=== PATIENT | female | born 1970 | race Caucasian/White ===

== ENCOUNTER 2017-05-09 07:47 | Inpatient (IN) | payer OTHER ==
[~2017-05-09] VITALS: Ht 162.6 cm; Wt 63.5 kg
[~2017-05-09 07:47] MED LIST: FLOVENT HFA12 GM INH; LAMOTRIGINE100 MG PO; MINOCYCLINE HC100 MG PO; PROVENTIL HFA6.7 GM INH; ZOFRAN4 MG PO
--- NOTE | 2017-05-09 16:56 | NUR ---
PATIENT TO FLOOR FROM ED. COMPLAINING OF ABDOMINAL PAIN 7/10 ON PAIN SCALE AND SOME NAUSEA. ADMINISTERED 4 MG IV ZOFRAN AND 25 MCG OF FENTANYL. PATIENT HOLDING STOMACH AND GRIMACING. ALSO COMPLAINS OF HEADACHE AND REQUESTING TYLENOL. UP TO BATHROOM STBY. FULL BODY ASSESMENT DONE. TELE CONNECTED TO PATIENT. CALL LIGHT WITHIN REACH.
[2017-05-09] MEDS ORDERED: CALCIUM 600 +1 EACH PO (18:01)
[2017-05-09] MEDS ORDERED: VITAMIN D1000 UNI1 PO (18:02)
--- NOTE | 2017-05-09 18:16 | NUR ---
PATIENT COMPLAINS OF PAIN, AND NAUSEA. ADMINISTERED PHENERGAN PO AND TYLENOL PO. PATIENT UP TO BATHROOM, INDEPENDANTLY. TELE SINUS VERONICA P 52.
--- NOTE | 2017-05-09 18:45 | NUR ---
PATIENT TO FLOOR FROM ED. TELE 6, SINUS VERONICA. COMPLAINTS OF NAUSEA, PHENERGAN ADMINISTERED. D51/2 NS WITH 20 K @ 100ML/HR. PATIENT VOIDING WELL. UA SENT.
--- NOTE | 2017-05-09 19:00 | NUR ---
SHIFT REPORT RECIEVED. PATIENT RESTING IN BED, EYES CLOSED, RR 16. CALL LIGHT IN REACH.
--- NOTE | 2017-05-09 20:18 | NUR ---
VITALS AND I&OS DONE AND CHARTED. HELPED HER TO THE BATHROOM AND BACK TO BED. BEDSIDE TABLE AND CALL LIGHT IN REACH.
--- NOTE | 2017-05-09 22:00 | NUR ---
PATIENT RESTING IN BED. STATES HER PAIN IS 3/10 IN THE EPIGASTRIC AREA BUT DECLINES THE NEED FOR PRN PAIN MEDS. NAUSEA HAS IMPROVED SOME. PATIENT ABLE TO DRINK SOME WATER AND A BITE OF JELLO. ABD IS SOFT AND NON TENDER. BOWEL SOUNDS ACTIVE. PAIN IS BURN AND SHARP IN THE EPIGASTRIC AREA. PAIN RADIATES TO THE MIDDLE OF HER BACK. SHE REPORTS THAT PAIN PRESSURE. LUNGS ARE CLEAR. PATIENT ON ROOM AIR. PATIENT IS INDEPENDENT UP TO THE BATHROOM. OUTPUT IS QS. IV FLUIDS INFUSING PER ORDER. SITE WNL. NO OTHER NEEDS AT THIS TIME.
--- NOTE | 2017-05-09 22:45 | NUR ---
PATIENT REPORTS INCREASING PAIN. 8/10 IN THE EPIGASTRIC AREA, 5/10 IN HER BACK. PRN PAIN AND NAUSEA MEDS PROVIDED. PATIENT HAD SMALL AMOUNT OF EMESIS, ESTIMATED 10MLS. PATIENT SETTLED DOWN WITHIN A FEW MINS OF MED ADMINISTRATION AND DENIED OTHER NEEDS. SHE IS RESTING IN BED. CALL LIGHT IN REACH.
--- NOTE | 2017-05-09 23:30 | NUR ---
PATIENT REQUESTING PRN NEB TREATMENT. RT CONTACTED.
--- NOTE | 2017-05-09 23:57 | NUR ---
VITALS AND I&OS DONE AND CHARTED. HELPED HER TO THE BATHROOM AND BACK TO BED. BEDSIDE TABLE AND CALL LIGHT WITHIN REACH. SHE NEEDS NOTHING ELSE AT THIS TIME.
--- NOTE | 2017-05-10 01:42 | NUR ---
VITALS AND I&OS DONE AND CHARTED. INFORMED PTS GUCCI HOUSTON OF HIGH B/P. PT ALSO COMPLAINS OF BACK AND STOMACH PAIN. I INFORMED GUCCI HOUSTON ALSO ABOUT THIS. I GOT PT A WARM BLANKET FOR HER BACK PER HER REQUEST. BEDSIDE TABLE AND CALL LIGHT WITHIN REACH.
--- NOTE | 2017-05-10 01:50 | NUR ---
PATIENT IS REPORTING 6/10 PAIN IN HER EPIGASTRIC AREA AND HER MID BACK. THIS PAIN IS CONSTANT AND BURNING. PRN PAIN MEDS PROVIDED. PATIENT HAS ALSO BEEN DRY HEAVING EVERY HOUR OR SO, SHE STATES. PRN PHENERGAN PROVIDED PER ORDER. PATIENT REPORTS SOME COMFORT FOR THE HEAT PACK, NEW ONE WAS PROVIDED. PATIENT APPEARS COMFORTABLE IN BED. CALL LIGHT IN REACH.
--- NOTE | 2017-05-10 03:34 | NUR ---
PATIENT REPORTED 6/10 PAIN. THE PAIN CONTINUES TO BE IN HER EPIGASTRIC AREA AND HER MIDDLE BACK. HEAT PACK AND WARM BLANKETS ARE COMFORTING TO HER. HOWEVER, SHE ALSO REQUESTED PRN PAIN MEDS AT THIS TIME. WHICH WAS GIVEN TO HER. PATIENT CONTINUES TO HAVE SMALL AMOUNTS OF GREEN EMESIS, ABOUT 10-20MLS AT A TIME. PATIENT IS PALE. PATIENT IS ON TELE, HR IN THE 60'S.
--- NOTE | 2017-05-10 04:45 | NUR ---
PATIENT APPEARS TO BE SLEEPING. RR 17. CALL LIGHT IN REACH.
--- NOTE | 2017-05-10 05:33 | NUR ---
PATIENT SLEPT ON AND OFF THROUGHOUT THE NIGHT. CONTINUES TO HAVE EPIGASTRIC PAIN THAT IS BURNING, SHARP AND CONSTANT. ALSO HAS MID BACK PAIN THAT IS ACHING. PRN PAIN MEDS X3 SO FAR. PATIENT ALSO HAS CONTINUED NAUSEA THAT IS ONLY MILD BUT UNRELIEVED BY PRN NAUSEA MEDS. ABD IS SOFT AND NONTENDER. NO OTHER SYMPTIOMS REPORTED. IV FLUIDS INFUSING PER ORDER, SITE WNL. LUNGS ARE CLEAR. PATIENT INDEPENDENT IN THE ROOM. OUTPUT QS. TELE #6, HR IN THE 60S MOST OF THE NIGHT.
--- NOTE | 2017-05-10 06:10 | NUR ---
PATIENT IS UP ON ALL FOURS IN HER BED. SHE IS BREATHING AT A RAPID RATE AND APPEARS VERY ANXIOUS. PRN PAIN MEDS AND PRN ZOFRAN PROVIDED. ENCOURAGED PATIENT TO BREATH DEEPLY AND MORE CONTROLLED. PATIENT REQUESTED WARM BLANKET WHICH WAS GIVEN TO HER. PATIENT DOES NOT HAVE ANY TENDERNESS OR DISTENTION. VS ARE WNL. MD CONTACTED. NO NEW ORDERS.
--- NOTE | 2017-05-10 07:09 | EKG ---
[facility] [address] [place], [place] [address] Signed Sinus bradycardia Otherwise normal ECG When compared with ECG of 09-MAY-2017 07:57, (Unconfirmed) No significant change was found Confirmed by JESSE KENNEDY MD ([id number]) on 05/10/2017 7:09:22 AM Electronically Signed By: JESSE KENNEDY MD 05/10/17 0709 PATIENT NAME: WARREN LAI Electrocardiogram DATE OF : 66 PHYSICIAN: JESSE KENNEDY MD REPORT #: [id number] REPORT IS CONFIDENTIAL AND NOT TO BE RELEASED WITHOUT AUTHORIZATION
--- NOTE | 2017-05-10 07:09 | EKG ---
[facility] [address] [facility] [place], [place] [address] Signed Sinus bradycardia Otherwise normal ECG No previous ECGs available Confirmed by JESSE KENNEDY MD ([id number]) on 05/10/2017 7:09:15 AM Electronically Signed By: JESSE KENNEDY MD 05/10/17 0709 PATIENT NAME: WARREN LAI Electrocardiogram DATE OF : 66 PHYSICIAN: JESSE KENNEDY MD REPORT #: [id number] REPORT IS CONFIDENTIAL AND NOT TO BE RELEASED WITHOUT AUTHORIZATION
--- NOTE | 2017-05-10 07:10 | EKG ---
[facility] [address] [place], [place] [address] Signed Marked sinus bradycardia Abnormal ECG When compared with ECG of 09-MAY-2017 08:34, (Unconfirmed) No significant change was found Confirmed by JESSE KENNEDY MD ([id number]) on 05/10/2017 7:09:53 AM Electronically Signed By: JESSE KENNEDY MD 05/10/17 0710 PATIENT NAME: WARREN LAI Electrocardiogram DATE OF : 66 PHYSICIAN: JESSE KENNEDY MD REPORT #: [id number] REPORT IS CONFIDENTIAL AND NOT TO BE RELEASED WITHOUT AUTHORIZATION
--- NOTE | 2017-05-10 07:20 | NUR ---
bed side report. pt anxious - c/o pain in mid posterior chest. rn scratched/rubbed back and comforted pt. she reported that it was a relief. she voided qs. amb back to bed and talked with RN about home stresses and family.
--- NOTE | 2017-05-10 07:46 | NUR ---
pt sl to ct scan via w/c
--- NOTE | 2017-05-10 08:03 | NUR ---
CHANGED BED LINENS. GETTING HER READY TO TAKE A SHOWER.
--- NOTE | 2017-05-10 08:37 | NUR ---
PATIENT JUST GOT OUT OF THE SHOWER. NOW IS RESTING.
--- NOTE | 2017-05-10 09:31 | NUR ---
talked with Dr. Veronica about pt pain, ok to use K pad for back pain, and discussed pt anxiety and stress. Pepcid given and pt enc to relax. will be in to discuss plan and ct.
--- NOTE | 2017-05-10 09:41 | NUR ---
NEW PILLOW BEHIND HEAD FOR COMFORT - DC GAME AGENT IN ROOM.
--- NOTE | 2017-05-10 10:26 | NUR ---
PT RATES PAIN 9/10 IN BACK - REPOSITIONED AND FENTANYL GIVEN. k PAD HEAT IS HELPING.
--- NOTE | 2017-05-10 10:37 | NUR ---
IN RM WITH DR. KUMAR 2 MG PO GIVEN - PHARMACY MAKING GI COCKTAIL NOW.
--- NOTE | 2017-05-10 12:26 | NUR ---
PATIENT C/O ABDOMINAL PAIN 10/01, PATIENT REQUESTED PAIN MEDICATION, 25MG OF FENTANYL IV GIVEN AT THIS TIME
--- NOTE | 2017-05-10 13:11 | NUR ---
PT REPORTS PAIN IMPROVING. TYLENOL PO GIVEN. PT COUGH UP WEEKS TINGED SPUTUM - HIST OF SMOKING DR SHOWN SPUTUM.
--- NOTE | 2017-05-10 13:11 | NUR ---
PT LAYING IN BED, IN RM. SHE WAVED, BUT SHOWED BY THE LOOK ON HER FACE THAT SHE WAS IN SOME PAIN. EXTENDED A BLESSING, SHE SMILED BEST SHE COULD, AND WAVED. WILL CONTINIE TO FOLLOW NEEDED
--- NOTE | 2017-05-10 17:12 | NUR ---
patient given 25 mg of fentanyl iv for c/o 7/10 abdominal pain and zofran iv for c/o nausea
--- NOTE | 2017-05-10 17:51 | NUR ---
PT TRYING LESS NARCOTIC MEDS AND K PAD AND ATIVAN ADJUVENTS FOR PAIN. SH TODAY - REPORTS MOST PAIN IN POSTERIOR BACK CHEST AREA. REPORTS IT TO BE EPIGASTRIC IN NATURE - GI COCKTAIL GIVEN - PT WAS ABLE TO SLEEP MULTIPLE TIMES, IV MEDS ALTERNATED WITH TYLENOL, PHENERGAN AND ATIVAN. CT NEG TODAY -
--- NOTE | 2017-05-10 19:00 | NUR ---
SHIFT REPORT RECIEVED. PATIENT APPEARS TO BE SLEEPING. RR 17. CALL LIGHT IN REACH.
--- NOTE | 2017-05-10 20:00 | NUR ---
PATIENT IS TENSE AND RESTLESS IN BED. REPORTS PAIN 7/10. SHE APPEARS ANXIOUS AND RN IS UNABLE TO CONSOLE HER. PRN PAIN AND ANXIETY MEDS PROVIDED. PATIENT HAS K-PAD IN USE. WARM BLANKETS PROVIDED. SHE REPORTS SHARP PAIN IN UPPER BACK AND EPIGASTRIC AREA. IS IS AAOX3. ABD IS SOFT AND NONTENDER. CMS INTACT. LUNGS ARE CLEAR. SKIN DOES NOT HAVE REDNESS OR RASH LIKE IT DID ON PREVIOUS SHIFT. PATIENT DENIES NAUSEA.
--- NOTE | 2017-05-10 20:30 | NUR ---
PATIENT MOVED HERSELF TO THE COUCH IN HOPES THAT SHE WOULD BE MORE COMFORTABLE. SHE CONTINUES TO COMPLAIN OF PAIN. TELE BECAME DISCONNECTED, RECONNCETED THE LINES AND CHECKED THE CONNECTION. PATIENT REQUEST TO GO TO THE BATHROOM. RN ASSISTED HER. PATIENT REPORTS FEELING DIZZY. BACK TO THE COUCH. CALL LIGHT IN REACH.
--- NOTE | 2017-05-10 21:15 | NUR ---
OPERATIONS VOCATIONAL INSTRUCTOR ASSISTED PATIENT TO THE BATHROOM AND BACK TO BED.
--- NOTE | 2017-05-10 21:36 | NUR ---
CHARGE NURSE ROUNDS, PT AWAKE, C/O PAIN, PRIMARY NURSE IN ROOM, NO OTHER REQUESTS,
--- NOTE | 2017-05-10 22:00 | NUR ---
RN ASSISTED PATIENT TO THE BATHROOM. PATIENT REPORTED DIZZINESS AND WAS UNSTEADY ON HER FEET. SHE IS MUMBLING TO HERSELF AND SLURRING HER SPEECH. SHE IS ORIENTED X4, BUT DROSWEY. ASSISTED HER BACK TO BED. BED ALARM TURNED ON. PATIENT REPORTS PAIN. K-PAD IN PLACE. WARM BLANKET PROVIDED.
--- NOTE | 2017-05-10 22:45 | NUR ---
PATIENT REQUESTED TO USE THE BATHROOM. ASSISTED PATIENT. SHE REPORTS FEELING DIZZY AND IS INCREASINGLY UNSTEADY ON HER FEET. 1PA TO BATHROOM AND BACK TO BED. PATIENT DID NOT URINATE AND DENIES PAIN OR THE URGE TO GO. STATES "I JUST THOUGHT I NEEDED TO". PATIENT REQUESTED "A PILL OR SOMETHING". SHE IS VERY DROWSEY AND RN DISCUSSED HOLDING OFF ON MEDICATION AT THIS TIME DUE TO HER DIZZINESS. PATIENT'S WORDS ARE NO LONGER SLURRED, BUT SHE DOES SEEM TO HAVE DIFFICULTY FINISHING HER TRAIN OF THOUGHT.
--- NOTE | 2017-05-10 23:00 | NUR ---
PATIENT IS RESTLESS IN THE BED. DROSWEY BUT ROLLING AROUND. IV CORD AND HER TELE CORDS WERE WRAPPED AROUND HER. GUCCI KIRKLAND ASSISTED PATIENT.
--- NOTE | 2017-05-10 23:30 | NUR ---
DISCUSSED PATIENT'S CONDITION WITH THE HOSPITALIST. REQUEST TELE BE DC DUE TO LACK OF BRADYCARDIA. PATIENT RESTING IN BED. MUMMBLING TO HERSELF. PATIENT IS ORIENTED BUT DROSWEY. RR 17.
--- NOTE | 2017-05-11 00:15 | NUR ---
PATIENT UP TO THE BATHROOM. UNSTEADY O NHER FEET. COMPLAINS OF ALL OVER BDOY ACHES AND FEELING WEAK. PATIENT REPORTS HEAD ACHE AND "SHAKING" ON HER BOTTOM AND FEET WHEN IN BED. PATIENT DID NOT URINATE, BUT SAT ON THE TOILET FOR A FEW MINS. PATIENT BACK TO BED. SHE IS RESTLESS AND RR 28. PATIENT DENIES NEED FOR WARM BLANKET OR OTHER CARE.
--- NOTE | 2017-05-11 00:57 | NUR ---
HELPED PT TO THE BATHROOM AND BACK TO BED. SHE WAS NOT STEADY AT ALL. PER PT REQUEST I GOT HER TWO WARM BLANKETS. BEDSIDE TABLE AND CALL LIGHT IN REACH. BED ALARM PUT ON.
--- NOTE | 2017-05-11 01:00 | NUR ---
PATIENT UP TO THE BATHROOM AGAIN. SAT IN BATHROOM BUT DID NOT URINATE. RR 30. STATES "I CAN'T CATCH MY BREATH". LUNGS ARE CLEAR. REPORTS FEELING WEAK AND DIZZY. PATIENT APPEARS ANXIOUS. SHE STATES "I'M OUT OF IT, I CAN'T TELL YOU ANYTHING, THIS HAS NEVER HAPPENED BEFORE". PATIENT REPORTS FEELING SOB AND ANXIOUS. RN IS UNABLE TO CONSOLE PATIENT. RT CONTACTED FOR NEB TREATMENT. PATIENT TOLERATED THAT FOR A FEW MINS BUT IT DID NOT RELIEVE ANY OF HER SYMPTOMS. HOSPITALIST CONTACTED, REQUESTED THE RN GIVE THE PATIENT HER ATIVAN. RN DID THIS. PATIENT REQUEST THE RN TO "CHECK AND SEE IF I'M OKAY SOON. I SWEAR I'M NOT A DRUG ADDICT BUT I DON'T KNOW HOW MUCH LONGER I CAN DO THIS." RN ENCOURAGED HER TO LAY DOWN AND DEEP BREATH. ASSURED HER SHE WOULD BE BACK TO CHECK ON HER.
--- NOTE | 2017-05-11 02:20 | NUR ---
continues to be very restless, increased anxiety, worried about grown up children whereabouts, sick daughter. tolerating sips of liquids well,. Up to bsc, voided dark yellow urine 125cc, was c/o pain at urethra earlier, no c/o burning or pain when she urinated. Unsteady gait, easily redirected, back to bed, bed alarm on. RN at bedside for last 30 minutes continues and other nsg staff here frequently to reassure pt and keep her safe, bed alarm on
--- NOTE | 2017-05-11 02:33 | NUR ---
PER ccU rn/ DR KENNEDY NEW ORDERS TO TRANSFER PT TO CCU. PT UP TO BSC WOTH PNE PERSON ASSIST, WEAK GAIT, NO BOID, BACK TO BED. PT TO BE TRANSFERRED TO CCU VIA BED. PT AWAREM QUESTIONS ANSWERED TO HER SATISFACTION, STILL VERY ANXIOUS AND RESTLESS, COOPERATIVE AND EASILY REDIRECTABLE
--- NOTE | 2017-05-11 02:40 | NUR ---
PT ARRIVES TO ICU ROOM 128 TRANSFER FROM MED SURG FOR INCREASED AGITATION. PT ARRIVES IN HER BED, DISTRESSED AND ANXIOUS, C/O NAUSEA, ABDOMINAL PAIN WELL GENERALIZED ALL OVER PAIN. HR IS 110-125, RR 28, UP AND DOWN TO BEDSIDE FREQUENTLY, TOSSING AND TURNING IN BED, C/O FEELING COLD, WARM BLANKETS GIVEN. BP ALSO ELEVATED, 161/85 MAP 103. PT IS VISIBLY DISTRESS, CRYING AND MOANING OUT AT TIMES, ASKING "CAN YOU JUST KNOCK ME OUT? NOT FOR 8-12 HOURS, JUST AN HOUR OR TWO?". PT APPEARS TO BE HALLUCINATING, IS TALKING TO HER CAT. ALSO STATES SHE FEELS LIKE SHE IS FALLING WHILE LYING IN BED. IS SOMEWHAT SHAKY. WHEN ASKED IF THERE WAS ANYTHING THAT SHE COULD BE GOING THROUGH WITHDRAWALS FROM SHE STATES THAT SHE SMOKES CIGARRETTES DAILY, NICOTINE PATCH PLACED. PT IS IN BED IN VIEW OF NURSES STATION, SIDE RAILS UP.
--- NOTE | 2017-05-11 02:45 | NUR ---
TRANSFER REPORT GIVEN TO CCU
--- NOTE | 2017-05-11 03:40 | NUR ---
BP IMPROVED, 154/95 MAP 110, HR 110-115. PT HAS FREQUENT URGE TO VOID, UP AND DOWN TO BSC TO ATTEMPT TO VOID TWICE SINCE ARRIVAL, CONTINUES TO STATE SHE FEELS NEED TO VOID BUT UNABLE TO- BLADDER SCAN DONE SHOWS 127ML. PT CONTINUES TO BE DISTRESSED, OCCASIONALLY NOT MAKING SENSE WITH HER WORDS, TOSSING AND TURNING IN BED C/O NAUSEA AND ANXIETY AND URGE TO VOID.
--- NOTE | 2017-05-11 03:54 | NUR ---
PT GIVEN 25MCG FENTANYL IV FOR PAIN 'ALL OVER'. RUBS LOWER LEGS, UP AND DOWN IN BED. MOVING CONTINUOUSLY IN BED. ATTEMPTED TO VOID AGAIN TO BSC, UNSUCCESSFUL.
--- NOTE | 2017-05-11 04:24 | NUR ---
PT MORE CALM. STILL FIDGETY, HOWEVER LESS SO. HR 90'S, IMPROVED FROM ADMIT. REPORTS FEELING LESS SHAKY. UP TO VOID 75ML OF CONCENTRATED URINE TO BSC. 1 PERSON ASSIST, WEAK WHEN UP. DR KENNEDY CALLED AT 0415 FOR CRITICAL LOW PHOSPHORUS LEVEL, ORDERS RECEIVED.
--- NOTE | 2017-05-11 05:53 | NUR ---
PT DROWSY, STILL RESTLESS. REQUIRES CONSTANT REMINDERS TO STAY IN BED. ASSISTED TO BSC TO VOID 75ML. PHYSICAL MOVEMENT ESSENTIALLY CONSTANT, EYES CLOSED, DRAWING LEGS UP AND DOWN. OVERALL SINCE ADMIT LESS ANXIOUS.
--- NOTE | 2017-05-11 08:00 | NUR ---
ASSESSMENT DONE. TALKED WITH PATIENT ABOUT PLAN OF CARE. THIS WILL NEED TO BE REINFORCED THOUGHOUT DAY. UP TO COMMODE AGAIN. IS IMPULSIVE, FREQUENT URINATION. URINE IS VERY LIGHT IN COLOR. STATES SHE HAS SOME BURING WITH URINATION. IS DIFFICULT TO UNDERSTAND. FENTANLY 25 MCG AND ATIVAN 2 MG PO GIVEN WELL TYLENOL 650 MG PO. ABLE TO TAKE PILLS WITH WATER.
--- NOTE | 2017-05-11 08:38 | NUR ---
RESTFUL AT THIS TIME. S.O. IN ROOM.
--- NOTE | 2017-05-11 09:13 | NUR ---
UP TO COMMODE AGAIN. RATES OVER ALL PAIN 5/10.
--- NOTE | 2017-05-11 10:20 | NUR ---
DIFFUSE RASH NOTED ON LEGS AND BUTTOCKS, DR. KENNEDY AWARE OF RASH AND BP WELL URINARY FREQUENCY. NO FUTHER ORDERS AT THIS TIME.
--- NOTE | 2017-05-11 10:40 | NUR ---
HAS BEEN UP TO COMMODE SEVERAL TIMES APPROX EVERY 20 MINS TO VOID 50 TO 150 ML OF CLEAR YELLOW URINE.
--- NOTE | 2017-05-11 12:30 | NUR ---
c/o increased pain in left shoulder blade. FENTANYL 25 MCG IV GIVEN, HEATING PAD APPLIED.NO INCREASED NOTED.
--- NOTE | 2017-05-11 15:15 | NUR ---
CONTINUE TO C/O PAIN IN CHEST AND SHOULDERS, RESTLESS. FENTANYL 25MCG IV GIVEN.
--- NOTE | 2017-05-11 15:45 | NUR ---
DR. ARIZMENDI HERE TO SEE PATIENT ORDERS RECIEVED. PATIENT IS SITTING AT BEDSIDE TEARY, C/O SEVERE MID UPPER EPIGASTRIC PAIN.
--- NOTE | 2017-05-11 16:20 | NUR ---
VISTERIL 25 MG, GI COCKTAIL GIVEN. LIDOCAINE PATCH TO BACK APPLIED. NORCO 5 MG PO GIVEN FOR PAIN. PATIENT CONTINUES TO GO TO COMMODE FREQUENTLY TO VOID. UA WAS SENT TO LAB EARILER. NO UTI NOTED. HEATING PAD TO CHEST/BACK FOR COMFORT.
--- NOTE | 2017-05-11 18:28 | NUR ---
DAUGHTER IS IN ROOM. PATIENT CONTINUE TO COMPLAIN OF BACK PAIN, REMAINS RESTLESS.
--- NOTE | 2017-05-11 20:02 | NUR ---
IN TO SEE PT AT 1930. PT RESTING WITH DAUGHTER AT BEDSIDE. HEAT PACK ON BACK, LIDODERM PATCH ON BACK. RATES UPPER BACK PAIN NEAR SCAPULA 07/02. PT ABLE TO REST WITHOUT CONSTANT MOVEMENT. HR 80'S-90'S WHEN ASLEEP, UP TO 140'S WHEN UP TO BEDSIDE TO STAND AND STRETCH LEGS. DR EDMOND.
--- NOTE | 2017-05-11 22:54 | NUR ---
DR ARIZMENDI UPDATED RE: PT BASELINE HR INCREASING TO ABOVE 90-100 AT REST (OVER LAST COUPLE HRS), HR INCREASING TO 130'S WITH MOVEMENT, 140'S-150'S WHEN OOB. ORDERS RECEIVED. CURRENTLY PT C/O OF EPIGASTRIC PAIN 5/10 AND SHARP CONSTANT PAIN BETWEEN SHOULDER BLADES. 1 NORCO GIVEN PO. CARDIZEN 45MG GIVEN PO. DR CORETS IN TO SEE PT AT 2114 FOR CONSULT. PT AGREES TO HAVE ENDOSCOPY SCOPE TOMORROW.
--- NOTE | 2017-05-11 23:20 | NUR ---
PT C/O PAIN, ASKED WHEN NEXT PAIN MEDICINE AVAILABLE. REMINDED THAT JUST ADMINISTERED. ALSO C/O NAUSEA. 5MG COMPAZINE GIVEN IV.
--- NOTE | 2017-05-12 00:39 | NUR ---
PT RESTING CALMLY. HR INCREASING TO 130'S WITH MOVEMENT, OTHERWISE 90'S-100'S. DENIES NEEDS. BED ALARM ON.
--- NOTE | 2017-05-12 03:04 | NUR ---
PT UP TO BSC TO VOID 125ML. PT RATES PAIN IN BACK ONLY 2/10. NAUSEA IMPROVED WELL.
--- NOTE | 2017-05-12 04:19 | NUR ---
C/O OF BACK PAIN 5-6/10 AND NAUSEA. REQUESTED PAIN MEDICATION AND ANTI-NAUSEA MEDICATION. GI COCKTAIL, NORCO 1 TAB, AND ZOFRAN GIVEN.
--- NOTE | 2017-05-12 05:59 | NUR ---
NEW IV PLACED IN L WRIST, BLOOD DRAWN FOR LAB. IV DC'D IN LAC. PT UP TO BSC TO VOID. REPORTS PAIN DECREASED TO 2/10 AND NO NAUSEA. PT FEELING BETTER. 45MG CARDIZEM GIVEN PO WITH SIPS WATER.
--- NOTE | 2017-05-12 07:08 | NUR ---
PT UP TO [facility] TO VOID 100ML URINE. PT SIGNED CONSENT FOR UPPER ENDOSCOPY TODAY.
--- NOTE | 2017-05-12 07:30 | NUR ---
BEDSIDE REPORT RECIEVED. PATIENT RESTFUL. DENIES PROBLEMS. IVF INFUSING.
--- NOTE | 2017-05-12 08:00 | NUR ---
ASSESSMENT DONE. C/O BACK PAIN. DENIES SHORTNESS OF BREATH. TALKED WITH PATIENT ABOUT PLAN OF CARE. IS UNDERSTANDING. IS ALERT, ORIENTED, COOPERATIVE.
--- NOTE | 2017-05-12 08:25 | NUR ---
HR TO 140 WITH ACTIVITY. DENIES SYMPTOMS.
--- NOTE | 2017-05-12 08:30 | NUR ---
NORCO GIVEN FOR BACK PAIN WITH SMALL SIP OF WATER.
--- NOTE | 2017-05-12 09:21 | NUR ---
REMAINS IN CHAIR. WATCHING TV.
--- NOTE | 2017-05-12 09:34 | NUR ---
BACK TO BED.
--- NOTE | 2017-05-12 11:13 | NUR ---
C/O INCREASED BACK PAIN. HEATING PAD TO BACK APPLIED. TO HAVE UPPER SCOPE AT 1230 TODAY.
--- NOTE | 2017-05-12 12:11 | NUR ---
TO OR VIA STRETCHER FOR EGD.
--- NOTE | 2017-05-12 12:44 | NUR ---
05/12/17 1244 Key Enriquez 1228 PT ARRIVED IN PACU VERY SLEEPY WITH ORAL BITE BLOCK IN PLACE. 1231 ANESTHESIA REMOVED BITE BLOCK. 1235 MOVED PT OVER TO OWN BED FROM STRETCHER WITH ONE PERSON ASSIST. PT NON-RESPONSIVE AT THIS TIME. 1243 PT RESPONSIVE WITH VERBAL STIMULI.
--- NOTE | 2017-05-12 12:56 | CONS ---
[facility] [address] [place], [place] [address] Signed DATE OF CONSULTATION: CONSULTING PHYSICIAN: Laurie Cortes MD. REQUESTING PHYSICIAN: Dr. Vargas. PROBLEM: Severe substernal and epigastric pain, uncertain etiology. HISTORY OF PRESENT ILLNESS: This 46-year-old white woman was admitted by Dr. Veronica on May 09, 2017, with severe substernal and epigastric pain. Her initial presentation was suggestive of possible cardiac disease and cardiac rule-out was undertaken. Her care has been assumed by Dr. Vargas today, who consulted me for further consideration of her symptoms. Imaging studies include a chest x-ray, abdominal and pelvic CT on May 09, and a chest CT scan on May 10, which showed no specific abnormality rather than distal esophageal and proximal gastric thickening. She has bulla of her left lung base as well. There was thickening noted of the gastric antrum as well as a small hiatal hernia. Since the admission, she has been in the intensive care unit where she was noted to have rather significant pain. She was started initially with pantoprazole intravenously administered. Currently, is getting diltiazem orally for possible esophageal spasm as well as pantoprazole intravenously. The patient does describe retching, but no actual vomiting. She has had no odynophagia whatsoever. She has some interscapular pain as well. She has no lower abdominal pain, diarrhea, or constipation. PAST MEDICAL HISTORY: Does include history of laparoscopic cholecystectomy by me in 2008 for acute calculous cholecystitis. She was admitted to the emergency room at that time with that problem. Operative report reviewed and shows no unusual findings at operation other than gallstones. The patient is noted to use daily marijuana and some consideration of possible marijuana-related cyclic vomiting syndrome has been made. At present, she is poorly responsive to intravenous pain medication. Initiation of Carafate and continued use of proton pump inhibitors as well as initiation of diltiazem has been undertaken. Electronically Signed By: LAURIE CORTES MD 05/12/17 1256 PATIENT NAME: WARREN LAI CONSULTATION DATE OF : 66 PHYSICIAN: LAURIE CORTES MD REPORT #: [id number] REPORT IS CONFIDENTIAL AND NOT TO BE RELEASED WITHOUT AUTHORIZATION [address] [address] Signed SOCIAL HISTORY: She has a life partner (Brown Fleming) and works for [employer] in [place]. She previously worked at [employer] in 2008. She lives in [place], [place]. REVIEW OF SYSTEMS: She has no current precordial chest pain or left arm radicular pain. Denies any diarrhea or constipation particularly. She has had some retching, but none currently and says no medication has been given has been too helpful to her. PHYSICAL EXAMINATION: GENERAL: Pleasant white woman, who is resting comfortably in the intensive care unit. She is easily awakened. HEENT: Mucous membranes are dry. Her trachea is midline. She has no jugular venous distention. CHEST: Shows normal respiratory excursion without tachypnea. HEART: Regular. ABDOMEN: Looks mildly distended, but this may represent only obesity. Palpation reveals mild epigastric tenderness, but no mass. She has no ascites. The remaining abdomen is normal. EXTREMITIES: Showed no clubbing, cyanosis, or edema. LABORATORY STUDIES: Showed a white count of 13.2, hematocrit 49.6, platelets 263,000. Electrolytes were normal. Liver enzymes also normal. D-dimer was less than 100. Liver enzymes are normal. Initial chest x-ray and CT scan showed only the mild wall thickening of the gastric antrum and the distal esophagus and GE junction. ASSESSMENT: Her substernal intense pain and gastroesophageal junction pain may well represent esophageal spasm. Antral thickening may represent peptic disease as well. I have discussed all this with Dr. Vargas. He has initiated already diltiazem for the possibility of esophageal spasm and she is on intravenous PPI medication (Protonix as well as now initiated Carafate). Upper endoscopy would be appropriate to better characterize the problem. Although, I know of no protracted antibiotic use that she has had or other forms of immunosuppression necessarily the possibility of yeast esophagitis or an infectious esophagitis is considered under the circumstances of her symptoms and even the CT scan. As regards upper endoscopy, she has not had that before. The risks of bleeding, infection, perforation, and importantly failure to cure her symptoms were reviewed in detail. She understands and wished to proceed. PLAN: Electronically Signed By: LAURIE CORTES MD 05/12/17 1256 PATIENT NAME: WARREN LAI CONSULTATION DATE OF : 66 PHYSICIAN: LAURIE CORTES MD REPORT #: [id number] REPORT IS CONFIDENTIAL AND NOT TO BE RELEASED WITHOUT AUTHORIZATION [address] [address] Signed We will allow diltiazem its reasonable amount of time for trial this evening and continue with Protonix and Carafate. As she has already had cholecystectomy, which was uncomplicated and these symptoms unlikely represent any problem of residual stone consideration would be made for upper endoscopy tomorrow. The risks of bleeding, infection, perforation, and so forth were reviewed in detail. She understands and wished to proceed. Timing for this intervention is uncertain. She will be n.p.o. after 2:00 a.m. MD TUAN Villavicencio/GIBSONL /[id number] cc: Angelica Veronica MD [facility] HealthMD Nayan Chu, Electronically Signed By: LAURIE CORTES MD 05/12/17 1256 PATIENT NAME: WARREN LAI CONSULTATION DATE OF : 66 PHYSICIAN: LAURIE CORTES MD REPORT #: [id number] REPORT IS CONFIDENTIAL AND NOT TO BE RELEASED WITHOUT AUTHORIZATION
--- NOTE | 2017-05-12 13:20 | NUR ---
report recieved from PACU BETH MILNER RN. PATIENT WITHOUT C/O. TRANSFER ORDERS FOR MED-SURG RECIEVED FROM DR. CORTES.
--- NOTE | 2017-05-12 13:30 | NUR ---
DR. ARIZMENDI AWARE OF WRITTEN TRANSFER ORDES. DR. ARIZMENDI SAID TO GIVE PO CARDIZEM 45 MG NOW.
--- NOTE | 2017-05-12 13:45 | NUR ---
SPONGE BATH GIVEN. PATIENT DOING WELL. CLEAR LIQ DIET ORDERED.
--- NOTE | 2017-05-12 14:10 | NUR ---
SAT AT BEDSIDE TO TAKE ONLY FEW SIPS OF CLEAR LIQUIDS. DENEIS NAUSEA.
--- NOTE | 2017-05-12 15:23 | OR ---
[facility] [address] [place], [place] [address] Signed DATE OF OPERATION: 05/12/2017 SURGEON: Laurie Cortes MD PREOPERATIVE DIAGNOSIS: Severe epigastric pain. CT scan findings of antral thickening and distal esophageal thickening. POSTOPERATIVE DIAGNOSES: 1. Normal-appearing esophagus. 2. Antral gastritis without ulceration or erosion. 3. Marginal flap valve. PROCEDURE: Esophagogastroduodenoscopy with biopsy. ANESTHESIA: Intravenous sedation, propofol infusion, Mitzy Willson CRNA. INDICATION: This 46-year-old white woman was admitted by Dr. Angelica Veronica on 05/09/2017 with severe epigastric pain. Her evaluation has included a CT scan of the abdomen and chest, as she does have interscapular and substernal pain as well. PPI medication alone was not effective in controlling her symptoms. Carafate was added and ultimately diltiazem on the possibility of esophageal spasm. She is improved after 24 hours of that therapy. A CT scan that was performed showed antral thickening and thickening at the GE junction. She is admitted to undergo upper endoscopy now under the care of Dr. Roger Vargas to better assess her problem. She understands the risks of bleeding, infection, and perforation, and wished to proceed. As special note, she underwent cholecystectomy by me nearly 10 years ago for acute cholecystitis with gallstones and noted to have normal cholangiogram. FINDINGS: Esophagus was normal in its appearance. There was no sign of Radford's epithelium or stigmata of dysmotility in anyway. The antrum was erythematous and inflamed, but there is no sign of erosion or ulcer. The pylorus was normal. The GE junction looked reasonably normal though the flap valve was somewhat patulous, but no sign of obvious hiatal hernia proper. The duodenum was normal. CLOtest was negative 15 minutes postprocedure. Her unifying diagnosis was antral gastritis at this point. Electronically Signed By: LAURIE CORTES MD 05/12/17 1523 PATIENT NAME: WARREN LAI OPERATIVE REPORT DATE OF : 66 PHYSICIAN: LAURIE CORTES MD REPORT #: [id number] REPORT IS CONFIDENTIAL AND NOT TO BE RELEASED WITHOUT AUTHORIZATION [facility] [address] [place], [place] [address] Signed DESCRIPTION OF PROCEDURE: The patient was brought to the endoscopy suite and given topical Hurricaine spray hypopharyngeal anesthesia and placed in lateral decubitus position. A bite block was placed. She was given intravenous sedation with propofol infusional technique on the basis of her ASA class of 3. After satisfactory sedation, an Olympus video upper endoscope was passed in the hypopharynx. The vocal cords and hypopharynx were normal. Scope was advanced to the esophagus. It appeared grossly normal without sign of stricture, neoplasm, varices, felinization, or Radford's epithelium. The scope was advanced to the stomach, which was insufflated with air. There was a small amount of bilious fluid within the stomach, but not much. There was some erythema of the folds of the more proximal stomach and the antrum itself had erythema and some edema, highly suggestive of antral gastritis. There was no sign of ulceration or neoplasm, however. The pylorus was normal. Scope was passed through into the duodenum. The scope was passed beyond the bulbar portion to the second and furthest part, which appeared normal. Biopsies were taken of the distal most portion of the duodenum and withdrawn to the bulb to allow for biopsy there. There was no channel ulceration or other ulceration. The scope was withdrawn to the antrum, where biopsies were taken for both FROY and pathologic testing. Retroflexed view was undertaken initially showing a reasonably good flap valve with various manipulations. The flap valve could be found to be somewhat patulous, however. Biopsies were taken of the proximal stomach, as there appeared to be mild antral gastritis. CLOtest biopsies were taken as well. The scope was straightened and withdrawn to the distal esophagus, which looked entirely normal. Biopsies were obtained. Narrow-band imaging showed no findings of Radford's epithelium in anyway either. Withdrawal of scope showed no other abnormality. Mid esophageal biopsy was obtained to assess for eosinophilic esophagitis though there were no concentric rings of the esophagus (felinization) or any other stigmata of that ailment. Careful withdrawal of scope showed no other abnormalities. The patient was then taken to the recovery room in good condition having suffered no complication. CONCLUDING DIAGNOSIS: Antral and to a lesser extent proximal gastritis. No evidence of ulcer or neoplasm. No sign of esophagitis or duodenitis. PLAN: Continued regimen of PPI plus Carafate and monitoring of her CLOtest and assessment of her final pathology will be most appropriate at this point. A diltiazem given for ostensible esophageal spasm may be reasonably continued at this time as well. I will review this further with Dr. Vargas. Electronically Signed By: LAURIE CORTES MD 05/12/17 1523 PATIENT NAME: WARREN LAI OPERATIVE REPORT DATE OF : 66 PHYSICIAN: LAURIE CORTES MD REPORT #: [id number] REPORT IS CONFIDENTIAL AND NOT TO BE RELEASED WITHOUT AUTHORIZATION [place] [phone] Signed MD TUAN Villavicencio/MODL /[id number] cc: MD Nayan Quiles DO Electronically Signed By: LAURIE CORTES MD 05/12/17 1523 PATIENT NAME: WARREN LAI OPERATIVE REPORT DATE OF : 66 PHYSICIAN: LAURIE CORTES MD REPORT #: [id number] REPORT IS CONFIDENTIAL AND NOT TO BE RELEASED WITHOUT AUTHORIZATION
--- NOTE | 2017-05-12 15:36 | NUR ---
C/O BACK PAIN. TYLENOL 650 MG PO GIVEN.
--- NOTE | 2017-05-12 18:25 | NUR ---
PT RECEIVED FROM CCU. TRANSFERED VIA WHEELCHAIR. PT TRANSFERED TO BED. PT DENIES OTHER NEEDS AT THIS TIME.
--- NOTE | 2017-05-12 19:31 | NUR ---
IN ROOM FOR REPORT, PT IS AWAKE IN BED WATCHING TV. PT IS CONCERNED ABOUT REMOVAL OF LIDOCAINE PATCH TONIGHT AND PAIN CONTROL. WILL LOOK INTO OTHER MEDICATIONS FOR PRN PAIN TONIGHT. PT DENIES FUTHER NEEDS. PT RATES PAIN AT 4/10 AT THIS TIME.
--- NOTE | 2017-05-12 22:39 | NUR ---
PT IS RESTING WITH EYES CLOSED, RESPIRATIONS EVEN AND NONLABORED. CALL LIGHT IS WITHIN REACH.
--- NOTE | 2017-05-12 23:04 | NUR ---
PATIENT CALLED TO USE THE BATHROOM. 1 PERSON ASSIST USING THE BEDSIDE COMMODE. PATIENT IS BACK IN BED. CALL LIGHT WITHIN REACH.
--- NOTE | 2017-05-13 00:55 | NUR ---
PT IS RESTING WITH EYES CLOSED, RESPIRATIONS EVEN AND NONLABORED, AND CALL LIGHT IS WITHIN REACH.
--- NOTE | 2017-05-13 02:30 | NUR ---
HELPED PT TO RESTROOM, SHE STATES SHE IS FEELING STEADIER ON HER FEET. PT STATES SHE HAS A LITTLE PAIN 4/10 AND TYLENOL IS DUE IN [address] KPAD ON HER BACK AND SAID WILL CHECK BACK IN 1 HR IF SHE IS SLEEPING SHE WILL CALL WHEN SHE WAKES UP FOR THE TYLENOL. PT DENIES FURTHER NEEDS.
--- NOTE | 2017-05-13 03:26 | NUR ---
PT STATES HER BACK PAIN JUMPED TO 7/10, ADMINISTERED TYLENOL AND CHANGED SETTINGS ON KPAD. PT DENIES FURTHER NEEDS AT THIS TIME.
--- NOTE | 2017-05-13 05:59 | NUR ---
PT IS AWAKE IN CHAIR, APPLIED ASPERCREAM TO UPPER BACK. PT DENIES FURTHER NEEDS AT THIS TIME.
--- NOTE | 2017-05-13 06:01 | NUR ---
PT SLEPT ON AND OFF THROUGH THE NIGHT. BACK PAIN HAS BEEN UP AND DOWN. PT STATES IT SEEMS WORSE THAN NORMAL POSSIBLY BECAUSE SHE IS SPENDING SO MUCH TIME IN BED. PT IS UP TO THE CHAIR AND ASPERCREAM IS APPLIED. PT IS A STANDBY ASSIST. POSSIBLE DC TODAY.
--- NOTE | 2017-05-13 07:20 | NUR ---
PATIENT SITTING UP IN CHAIR. CAN CLOSING MACHINE TENDER NAHUM IN ROOM TO ASSIST PATIENT TO BATHROOM. NO OTHER NEEDS.
--- NOTE | 2017-05-13 07:29 | NUR ---
VERBAL REPORT RECIEVED FROM EJSSE DUCKWORTH. PLANS TO ADVANCE DIET THIS MORNING. RATING PAIN 3/10 ON PAIN SCALE. PATIENT HAS NOT HAD A BM SINCE WILL ADDRESS WITH DR. ARIZMENDI TODAY. PATIENT UP TO BATHROOM, APPEARS STEADY ON FEET. LUNG SOUNDS CLEAR, RA. BOWEL TONES ACTIVE, PATIENT REPORTS ACTIVE FLATUS.
--- NOTE | 2017-05-13 09:35 | NUR ---
DR. CORTES ROUNDED WITH PATIENT, NO NEW ORDERS AT THIS TIME. ADDRESSED PATIENT CONCERNS AND QUESTIONS. ADMINISTERED MORNING MEDICAITONS. FULL BODY ASSESMENT DONE. PATIENT COMPLAINS OF CHRONIC BACK PAIN 4/, HAS HEATING PAD AND PRN TYLENOL ADMINISTERED. AT BEDSIDE. VS STABLE.
--- NOTE | 2017-05-13 10:31 | NUR ---
PATIENT WALKED LENGTH OF HALLWAY. PATIENT TOLERATED THIS ACTIVITY WELL.
[2017-05-13] MEDS ORDERED: NICOTINE LOZENGE2 MG BUCCAL (11:56)
[2017-05-13] MEDS ORDERED: DILTIAZEM 24HR180 M3 PO (11:57)
[2017-05-13] MEDS ORDERED: OMEPRAZOLE20 MG PO ×2 (11:58→12:03)
[2017-05-13] MEDS ORDERED: CARAFATE1 GM/10 ML PO (11:58)
--- NOTE | 2017-05-13 12:51 | NUR ---
PATIENT STANDBY ASSIST TO SHOWER. THIS GIS ADMINISTRATOR CLEANED UP AND DRIED BATHRROM FLOOR. CALL LIGHT IN REACH. NO OTHER NEEDS.
--- NOTE | 2017-05-13 12:57 | NUR ---
PLAN TO DISCHARGE PATIENT PER DR. ARIZMENDI, WAITING FOR DR. CORTES TO VERBALIZE OKAY FOR DISCHARGE. PATIENT VERBALIZED UNDERSTANDING.
--- NOTE | 2017-05-13 15:04 | NUR ---
CALL TO DR. CORTES WHO STATED " I AM OKAY WITH DISCHARGE, SHE IS ON DR. ARIZMENDI'S SERVICE." NOTIFIED PHARMACY. PLAN TO DISCHARGE NOW.
--- NOTE | 2017-05-13 15:42 | NUR ---
PROVIDED PATIENT WITH DISCHARGE INSTRUCTIONS, DISCUSSED IN DETAILL FOOD CHOICES AND IMPORTANCE OF CONTINUING MEDICATIONS DC'D WITH. ANSWERED QUESTIONS AND CONCERNS. REMOVED IV TO LEFT HAND, CATH INTACT. PROVIDED WHEEL CHAIR RIDE TO FRONT. DISCHARGE VS STABLE.
== END 2017-05-13 15:20 | disposition home or self-care (01) | DRG 392 ==
LOC: ED 07:47 → MS 15:48 → CCU 05-11 02:41 → MS 05-12 18:20
PROVIDERS: Surgery; ADMIT Internal Medicine
PROC: 0DB68ZX Excision of Stomach, Via Natural or Artificial Opening Endoscopic, Diagnostic (ICD-10-PCS; 2017-05-12)
PROC: 0DB98ZX Excision of Duodenum, Via Natural or Artificial Opening Endoscopic, Diagnostic (ICD-10-PCS; principal; 2017-05-12 12:00)
DX: K29.00 Acute gastritis without bleeding (principal); K22.4 Dyskinesia of esophagus; E87.6 Hypokalemia; E83.39 Other disorders of phosphorus metabolism; F31.9 Bipolar disorder, unspecified; J45.909 Unspecified asthma, uncomplicated; F17.200 Nicotine dependence, unspecified, uncomplicated; K57.30 Diverticulosis of large intestine without perforation or abscess without bleeding; R07.9 Chest pain, unspecified; F12.90 Cannabis use, unspecified, uncomplicated; R55 Syncope and collapse; R00.1 Bradycardia, unspecified
CPT/HCPCS: 36415; 51798; 71045; 71260; 74177; 80048; 80053; 80076; 81001; 83605; 83690; 83735; 84100; 84484; 85025; 85379; 85651; 93005; 93010; 94640; 96361; 96374; 96375; 96376; 99284; J0780; J1170; J2060; J2250; J2405; J2704; J2765; J3010; J7030; J7060; Q0177; Q9967

== ENCOUNTER 2017-05-15 06:52 | Emergency (ER) | payer OTHER ==
[~2017-05-15] VITALS: Ht 162.6 cm; Wt 64.0 kg
[~2017-05-15 06:52] MED LIST changes: +CALCIUM 600 +1 EACH PO; +CARAFATE1 GM/10 ML PO; +DILTIAZEM 24HR180 M3 PO; +NICOTINE LOZENGE2 MG BUCCAL; +OMEPRAZOLE20 MG PO; +VITAMIN D1000 UNI1 PO
[2017-05-15] MEDS ORDERED: CYCLOBENZAPRINE10 MG PO (09:47)
[2017-05-15] MEDS ORDERED: NORCO 7.5-3251 EACH PO (09:47)
== END 2017-05-15 10:00 | disposition home or self-care (01) ==
LOC: ED 06:52
DX: M54.6 Pain in thoracic spine (principal); J45.909 Unspecified asthma, uncomplicated; F17.200 Nicotine dependence, unspecified, uncomplicated; Z88.0 Allergy status to penicillin; Z79.899 Other long term (current) drug therapy
CPT/HCPCS: 80053; 81001; 83690; 84703; 85025; 99283; J2405

== ENCOUNTER 2017-06-19 02:26 | Inpatient (IN) | payer OTHER ==
[~2017-06-19] VITALS: Ht 157.5 cm; Wt 65.4 kg
[~2017-06-19 02:26] MED LIST changes: +CYCLOBENZAPRINE10 MG PO; +NORCO 7.5-3251 EACH PO
[2017-06-19] MEDS ORDERED: LAMOTRIGINE100 MG PO (02:30)
[2017-06-19] MEDS ORDERED: DOCUSATE SODIU100 MG PO (02:32)
[2017-06-19] MEDS ORDERED: DILTIAZEM 24HR180 MG PO (02:33)
[2017-06-19] MEDS ORDERED: VENTOLIN HFA18 GM INH (02:34)
[2017-06-19] MEDS ORDERED: CALCIUM + VITA1 EACH PO (02:36)
[2017-06-19] MEDS ORDERED: VITAMIN D31000 UNIT PO (02:37)
[2017-06-19] MEDS ORDERED: MAPAP500 MG PO (02:38)
--- NOTE | 2017-06-19 04:40 | NUR ---
PT ARRIVED TO FLOOR VIA STRETCHER WITH ECHO TECH. PT STOOD AND TRANSFERED TO BED. PT USED BEDSIDE CAMMODE WITH NO ISSUES. PT STATES SIGNIFICANT OTHER WILL BE COMING HERE.
--- NOTE | 2017-06-19 05:00 | NUR ---
PT STATES "I AM FOGGY" WHEN ASKING HER ADMNISSION QUESTIONS. PT IS UNABLE TO ANSWER PAST MEDICAL HISTORY. PT STATED TO ASK SIGNIFICANT OTHER THESE QUESTIONS WHEN HE GETS HERE.
--- NOTE | 2017-06-19 05:15 | NUR ---
PT ADMISSION QUESTIONS ANSWERED BY SIGNIFICANT OTHER. PT IS RESTING IN BED AT THIS TIME. BED ALARM IS ON D/T PT "FOGGINESS". PT SIGNIFICANT OTHER DOES NOT KNOW WHY THE PT IS ON DILTIAZEM AND IS NOT FAMILIAR WITH HER HAVING AN IRREGULAR HEART BEAT.
--- NOTE | 2017-06-19 06:28 | NUR ---
PT CALLED TO GET UP TO BEDSIDE CAMMODE AGAIN. PT HAS BEEN UP 3 TIMES IN THE LAST1 /2. PT URIANTING SMALL QUANTITIES AT A TIME. BED ALARM ON FOR PT SAFETY. WILL CONTINUE TO CLOSELY MONITOR.
--- NOTE | 2017-06-19 07:37 | NUR ---
PT HAS NO SIEZURE-LIKE ACTIVITY SINCE BEING ADMITTED. WILL CONTINUE TO DECREASE STIMULATION AND KEEP LIGHTS TURNED OFF. PT HAS SUCTION SET UP AT THE BEDSIDE. WILL CONTINUE TO CLOSELY MONITOR.
--- NOTE | 2017-06-19 08:00 | NUR ---
ASSESSMENT DONE. PATIENT UP TO COMMODE WITH ASSIST. IS GROGGY. IS FOLLOWING COMMANDS. BACK TO BED W/O INCIDENT. HAS SLIGHT NAUSEA WITH MOVEMENT.
--- NOTE | 2017-06-19 08:02 | NUR ---
PT BACK TO BED FROM COMMODE. PT GIVEN FRESH ICE WATER. INFORMED PT TO CALL IF SHE NEEDS ANYTHING. BED ALARM SET. CALL LIGHT IS IN REACH.
--- NOTE | 2017-06-19 10:00 | NUR ---
NAHUM JONES EXTRUDING MACHINE OPERATOR HERE TO DO LUMBAR PUNCTURE.
--- NOTE | 2017-06-19 10:20 | NUR ---
TOLERATED LP WELL. CSF IS CLEAR. SENT TO LAB. PATIENT C/O INTERMITTENT NAUSEA.
--- NOTE | 2017-06-19 11:00 | NUR ---
CONTINUES TO GET UP TO COMMODE FREQUENTY WITH ASSIST.
--- NOTE | 2017-06-19 11:53 | NUR ---
VS AND I&O'S TAKEN AND DOCUMENTED. PT UP TO BEDSIDE COMMODE AND BACK TO BED. PT HAS NO NEEDS AT THIS TIME. PT AWARE TO CALL IF SHE NEEDS ANYTHING. CALL LIGHT IN REACH.
--- NOTE | 2017-06-19 11:54 | NUR ---
NO SEIZURE ACTIVITY NOTED.
--- NOTE | 2017-06-19 12:00 | NUR ---
MRI FORM FAXED TO MRI DEPARTMENT.
--- NOTE | 2017-06-19 13:05 | NUR ---
TO MRI IN WHEELCHAIR. DR ARIZMENDI STATES OK FOR PATIENT TO GO TO MRI WITHOUT RN.
--- NOTE | 2017-06-19 13:47 | NUR ---
RETURNED TO CCU. VOMITING. ZOFRAN TO BE GIVEN.
--- NOTE | 2017-06-19 15:22 | NUR ---
KNOT BORER HERE TO DO EEG AT BEDSIDE.
--- NOTE | 2017-06-19 15:50 | NUR ---
C/O MID SUBSTERNAL CHEST DISCOMFORT. RATES 06/01. DR. ARIZMENDI AWARE. GI COCKTAIL ORDERED.
--- NOTE | 2017-06-19 15:55 | NUR ---
PATIENT C/O 3/10 SUBSTERNAL CHEST PAIN RADIATING THROUGH TO HER BACK. SHE IS CURRENTLY HAVING AN EEG. GUCCI NG AND INFORMED. VERBAL ORDER FOR GI COCKTAIL FROM GIVEN AND IT WAS OBTAINED FROM ER AND GIVEN TO GUCCI NG.
--- NOTE | 2017-06-19 16:00 | NUR ---
PATIENT STILL SITTING IN HIS RECLINER WORKING ON HIS TABLET. VS STABLE. AWAITING ARIVAL OF FO EVALUATION TO DISCHARGE.
--- NOTE | 2017-06-19 16:10 | NUR ---
EEG COMPLETE. GI COCKTAIL GIVEN PER DR. ARIZMENDI'S ORDERS. COMPAZINE 5 MG IV GIVEN FOR NAUSEA.
--- NOTE | 2017-06-19 19:29 | NUR ---
REPORT TO NEXT SHIFT. NO SIEZURE ACTIVITY NOTE TODAY. IV REMAINS PATENT AT 125 ML/HR. HAS BEEN LETHARGIC TODAY. REFUSED CLEAR LIQUID DINNER.
--- NOTE | 2017-06-19 20:00 | NUR ---
RECEIVED REPORT AT 1900. FOUND PT IN BED SLEEPING. PT STATED THAT SHE WAS VERY TIRED. NO NEW CONCERNS AT THIS TIME.
--- NOTE | 2017-06-19 22:00 | NUR ---
PT IS STILL SLEEPING. RIGHT LOWER LOBE IS COARSE. ALL OTHER LOBES ARE CLEAR. PT IS NOT ORINETED TO DATE AND TIME. OTHERWISE PT IS FULLY ORIENTED. PUPILS ARE WDL, OVERALL STRENGTH IS +5. ABD SOUNDS ARE PRESENT. NO PERIPHERAL EDEMA NOTED. URINE OUTPUT SO FAR HAS BEEN ADEQUATE.
--- NOTE | 2017-06-20 00:10 | NUR ---
PT IS STILL SLEEPING MOSTLY. ALL LOBES ARE CLEAR AT THIS TIME. PT IS AAO X4 THIS TIME. PT STATED THAT SHE IS FEELING A BIT BETTER OVERALL. V/S ARE WDL. NO NEW CONCERNS AT THIS TIME.
--- NOTE | 2017-06-20 02:05 | NUR ---
V/S ARE WDL OVERALL. PT WOKEN UP FOR V/S. PT REMAINS AAO X4. NO NEW CONCERNS.
--- NOTE | 2017-06-20 04:00 | NUR ---
V/S ARE WDL, PT IS AAO X4 AND IN GOOD SPIRITS. OVERALL PT IS MUCH MORE ALERT AND STATED THAT SHE FEEL VERY WELL AT THIS TIME. PUPILS ARE WDL AND SO IS HER OVERALL STRENGTH. PT IS STILL TIRED. NO NEW CONCERNS AT THIS TIME.
--- NOTE | 2017-06-20 06:23 | NUR ---
PT OVERALL HAD AN UNEVENTFUL NIGHT. PT SLEPT MOST OF THIS SHIFT. PT FELT EXHAUSTED. V/S ARE WDL, URINE OUTPUT IS WDL. AT START OF SHIFT PT WAS NOT ORIENTED TO DATE AND WEEKDAY. FOR THE 0000 AND 0400 ASSESSMENT PT HAS BEEN AND IS AAOX4. PT DOES NOT SEEMS TO HAVE ANY NEUROLOGICAL DEFECITS. PUPILS ARE WDL. AT START OF SHIFT RIGHT LOWER LOBE WAS COARSE. THIS HAS SINCE CLEARED UP. ALL LOBES ARE CLEAR. PT IS IN VERY GOOD SPIRITS IT SEEMS. NO NEW CONCERNS NOTED.
--- NOTE | 2017-06-20 07:30 | NUR ---
BEDSIDE REPORT RECIEVED. IS LAYING IN BED, DENEIS PROBLEMS.
--- NOTE | 2017-06-20 08:08 | NUR ---
ASSESSMENT DONE. C/O HEADACHE. PREP PT TO GO TO CT. PATIENT IS AWARE OF POC.
--- NOTE | 2017-06-20 09:00 | NUR ---
tylenol 500 MG GIVEN FOR SMITH. RATES 06/01. ROUTINE MEDS GIVEN.
--- NOTE | 2017-06-20 09:12 | NUR ---
TOOK PATIENT'S BREAKFAST TRAY INTO HER.
--- NOTE | 2017-06-20 09:31 | NUR ---
to ct via w/c.
--- NOTE | 2017-06-20 09:50 | NUR ---
RETURN TO CCU. TOLERATED CT WELL.
[2017-06-20] MEDS ORDERED: FLOVENT HFA12 GM INH (10:24)
--- NOTE | 2017-06-20 10:30 | NUR ---
DENIES PROBLEMS, DR. ARIZMENDI HERE TO SEE PATIENT. TRANSFER ORDERS RECIEVED.
--- NOTE | 2017-06-20 11:23 | NUR ---
PATIENT IS EATING HER LUNCH RIGHT NOW.
--- NOTE | 2017-06-20 11:29 | NUR ---
SITTING UP IN BED TO EAT LUNCH. WILL BE TRANSFERRED TO MEDICAL FLOOR TODAY.
--- NOTE | 2017-06-20 11:40 | NUR ---
REPORT TO MED-SURG.
--- NOTE | 2017-06-20 11:55 | NUR ---
TO MEDICAL FLOOR VIA W/C.
--- NOTE | 2017-06-20 12:30 | NUR ---
PT RECEIVED FROM CCU. PT ASSISTED TO BED, SBA. IV FLUIDS INFUSING D5LR AT 65. PT ALERT/ORIENTED. PT ON ROOM AIR, LUNG SOUNDS CLEAR. PT CONTINUES TO COMPLAINF OF HEADACHE, REQUESTING TYLENOL, 500 MG PO TYLENOL GIVEN. PT DENIES NAUSEA, TOLERATING CARDIAC DIET, BOWEL TONES ACTIVE. CMS INTACT. PT DENIES OTHER NEEDS AT THIS TIME. FAMILY AT BEDSIDE.
--- NOTE | 2017-06-20 15:15 | NUR ---
PT ASSISTED TO BATHROOM AND BACK TO BED. PT DENIES OTHER NEEDS AT THIS TIME.
--- NOTE | 2017-06-20 16:33 | NUR ---
PT RESTING IN BED. PT DENIES NEEDS AT THIS TIME. SEIZURE PADS IN PLACE.
--- NOTE | 2017-06-20 18:21 | NUR ---
PT RECEIVED FROM CCU. SEIZURE PRECAUTIONS IN PLACE. PT ON ROOM AIR, LUNG SOUNDS CLEAR. PT TOLERATING CARDIAC DIET, DENIES NAUSEA. PT UP WITH SBA TO BATHROOM, FEELS WEAK. IV FLUIDS INFUSING D5LR AT 65 ML/HR, NEW IV TO RIGHT FOREARM. PT HAS HAD NO SEIZURE ACTIVITY SINCE ARRIVING TO FLOOR. VOIDING QS.
--- NOTE | 2017-06-20 19:29 | NUR ---
Rounding charge nurse note:. A&O, seizure pads in place, Up to brp with one assist, voided clear yellow urine, back to bed, tolerated well. Denies s/sx seizure activity.
--- NOTE | 2017-06-20 20:00 | NUR ---
RECEIVED REPORT AT 1930, FOUND PT IN BED SLEEPING. NO NEW CONCERNS AT THAT TIME.
--- NOTE | 2017-06-20 21:03 | EKG ---
[facility] [address] [facility] [place] [address] Signed Sinus tachycardia Possible Left atrial enlargement Borderline ECG No previous ECGs available Confirmed by RUSSEL ARIZMENDI MD ([id number]) on 06/20/2017 9:03:26 PM Electronically Signed By: RUSSEL ARIZMENDI MD 06/20/[id number] PATIENT NAME: WARREN LAI Electrocardiogram DATE OF : 66 PHYSICIAN: RUSSEL ARIZMENDI MD REPORT #: [id number] REPORT IS CONFIDENTIAL AND NOT TO BE RELEASED WITHOUT AUTHORIZATION
--- NOTE | 2017-06-20 21:07 | NUR ---
VITALS AND I&OS DONE AND CHARTED. HELPER HER TO THE BATHROOM AND BACK TO BED. BEDSIDE TABLE AND CALL LIGHT IN REACH. FRESH ICE WATER GIVEN.PT NEEDS NOTHING ELSE AT THIS TIME.
--- NOTE | 2017-06-20 21:13 | NUR ---
Rounding charge nurse note: Continues on seizure precautions, seizure pads around rails and mats around bed. No c/o seizure activity at this time. no request
[2017-06-20] MEDS ORDERED: LAMICTAL150 MG PO (21:25)
[2017-06-20] MEDS ORDERED: LAMICTAL200 MG PO (21:26)
--- NOTE | 2017-06-20 22:00 | NUR ---
V/S ARE WDL, PT IS AAO X4. PT HAS NOT MUCH RECOLLECTION FROM LAST NIGHT. SHE STATED THAT SHE FEELS LIKE SHE IS BACK TO NORMAL. ALL LOBES ARE CLERA, NEUROLOGICALLY PT IS INTACT. PT HAS A HEADACHE AND RECEIVED PRN TYLENOL. WILL CONTINUE TO MONITOR.
--- NOTE | 2017-06-21 | NUR ---
PT IS SLEEPING AT THIS TIME.
--- NOTE | 2017-06-21 02:00 | NUR ---
PT WAS WOKEN UP FOR 0200 ASSESSMENT. HR IS 60'S-70'S, PT HAS BEEN SLEEPING. ALL LOBES ARE CLEAR. PT IS ON BI-PAP. NO PERIPHERAL EDEMA NOTED. PT DENIES PAIN AND ANY OTHER COCNERNS AT THIS TIME. PT IS BACK IN BED.
--- NOTE | 2017-06-21 02:00 | NUR ---
PT WAS WOKEN UP FOR 0200 ASSESSNENT. PT IS AAOX4, PT DENIES PAIN, PT IS NEUROLOGICALLY INTACT. STATUS OF THIS PT HAS NOT CHANGED SINCE THE LAST ASSESSMENT. PT IS BACK TO SLEEP.
--- NOTE | 2017-06-21 04:00 | NUR ---
PT IS SLEEPING AT THIS TIME.
--- NOTE | 2017-06-21 05:16 | NUR ---
V/S SO FAR ARE WDL. PT HAS BEEN SLEEPING MOST OF THIS SHIFT. PT IS AAOX4, ALL LOBES ARE CLEAR. ABD SOUNDS ARE PRESENT. STRENGTH IS +5, NO PERIPHERAL EDEMA NOTED. PO INTAKE AND OUTPUT ARE ADEQUATE. NO NEW CONCERNS AT THIS TIME.
--- NOTE | 2017-06-21 07:10 | NUR ---
BEDSIDE HANDOFF REPORT RECEIVED FROM MANAGER DECISION SUPPORT RN. PT RESTING IN BED. PT DENIES NEEDS AT THIS TIME.
--- NOTE | 2017-06-21 07:55 | NUR ---
PT RESTING IN BED. PT ALERT/ORIENTED, NO NEURO DEFICITS NOTED. PT ON ROOM AIR, LUNG SOUNDS CLEAR, DENIES SOB. PT SALINE LOCKED. PT STATES APPETITE IS BETTER THAN YESTERDAY, DENIES NAUSEA, BOWEL TONES ACTIVE. CMS INTACT, WITHOUT EDEMA. PT DENIES PAIN. PT VOICING HOPE TO DISCHARGE TODAY, DISCUSSED PLAN OF CARE. PT DENIES OTHER NEEDS AT THIS TIME.
--- NOTE | 2017-06-21 09:30 | NUR ---
PT GIVEN SCHEDULED MEDICATIONS. FAMIILY AT BEDSIDE. PT PREPARING TO SHOWER. PT DENIES OTHER NEEDS AT THIS TIME.
--- NOTE | 2017-06-21 10:52 | NUR ---
IN CASE THE PATIENT NEEDED ANY HELP IN THE SHOWER THE DAUGHTER WAS STANDING BY. WAS ALSO IN THE ROOM.
[2017-06-21] MEDS ORDERED: LAMICTAL150 MG PO (11:17)
[2017-06-21] MEDS ORDERED: LAMICTAL200 MG PO (11:17)
--- NOTE | 2017-06-21 12:00 | NUR ---
PT TO BEDSIDE TO EVALUATE PT, PLAN TO DISCHARGE TODAY. PT SITTING IN CHAIR, EATING LUNCH. PT DENIES OTHER NEEDS AT THIS TIME.
--- NOTE | 2017-06-21 12:18 | NUR ---
MANDATORY IMPAIRMENT REFERRAL FILLED OUT BY PHYSICIAN. THIS WAS FAXED TO THE [employer] [phone]. FAX CONFIRMATION RECEIVED. COPY TO CHART.
== END 2017-06-21 12:35 | disposition home or self-care (01) | DRG 101 ==
LOC: ED 02:26 → EDBD 02:27 → ED 02:27 → CCU 02:28 → MS 12:13 → CCU 06-20 12:13 → MS 06-21 12:35
PROVIDERS: ADMIT Internal Medicine
PROC: 009U3ZX Drainage of Spinal Canal, Percutaneous Approach, Diagnostic (ICD-10-PCS; principal; 2017-06-19)
DX: G40.909 Epilepsy, unspecified, not intractable, without status epilepticus (principal); D72.829 Elevated white blood cell count, unspecified; K21.9 Gastro-esophageal reflux disease without esophagitis; I10 Essential (primary) hypertension; F31.9 Bipolar disorder, unspecified; Z87.891 Personal history of nicotine dependence; Z79.899 Other long term (current) drug therapy; Z88.0 Allergy status to penicillin; Z86.69 Personal history of other diseases of the nervous system and sense organs
CPT/HCPCS: 00635; 36415; 51701; 70450; 70470; 70551; 71045; 80053; 81001; 82542; 82800; 82945; 83735; 84157; 85025; 85032; 85651; 87070; 87075; 87205; 87483; 89051; 93005; 93010; 94640; 96367; 96368; 96374; 96375; 99285; G0378; G0480; J0133; J0696; J0780; J1650; J1953; J2060; J2405; J3370; J7030; J7050; J7120; Q9967

== ENCOUNTER 2018-04-18 11:25 | Day surgery (SDC) | payer OTHER ==
[~2018-04-18] VITALS: Ht 154.9 cm; Wt 68.0 kg
[~2018-04-18 11:25] MED LIST changes: +CALCIUM + VITA1 EACH PO; +DILTIAZEM 24HR180 MG PO; +DOCUSATE SODIU100 MG PO; +LAMICTAL150 MG PO; +LAMICTAL200 MG PO; +MAPAP500 MG PO; +VENTOLIN HFA18 GM INH; +VITAMIN D31000 UNIT PO
[2018-04-18] MEDS ORDERED: HYDROCODON-ACE1 EA10 PO (14:35)
[2018-04-18] MEDS ORDERED: DICLOFENAC SODI75 MG PO (14:36)
--- NOTE | 2018-04-18 14:45 | NUR ---
04/18/18 1445 Bette Weir 1438l: PT ARRIVES TO PACU IN SUPINE POSITION WITH EYES CLOSED. PT ON 10L VIA MASK, SATS 100%. RESP EVEN AND UNLABORED. PT AROUSES TO VERBAL STIMULI, THEN QUICKLY FALLS BACK ASLEEP. PT ABLE TO DENY PAIN OR N/V.
--- NOTE | 2018-04-18 15:41 | NUR ---
[id number]: PT ARRIVES TO DS RM 6 FROM PACU AWAKE AND ALERT. PT RESP EVEN AND UNLBAORED ON RA. PT DENIES PAIN OR NAUSEA. SPOUSE AT BEDSIDE ON ARRIVAL. SCD'S IN PLACE AND CALL LIGHT WITHIN REACH. ICED WATER PROVIDED.
--- NOTE | 2018-04-18 16:17 | NUR ---
[id number]: PT PROVIDED JELLO, TOLERATES PO WELL. 1615: PT STATES URGE TO VOID. PT SITS AT SIDE OF BED, DENIES ANY DIZZINESS OR NAUSEA. PT AMBULATES TO BATHROOM WITH RN ASSIST STEADY. PT ABLE TO VOID QS WITH NO PROBLEMS. PT BACK IN BED, SPOUSE BACK FROM PHARMACY AT BEDSIDE.
--- NOTE | 2018-04-18 16:45 | NUR ---
1630: DC CRITERIA MET. DC INSTRUCTIONS GIVEN IN PRESENCE OF PT AND SPOUSE. PT DRESSES SELF WITH HELP FROM SPOUSE. PT DC'S FROM RM 6 VIA [facility].
--- NOTE | 2018-04-20 10:39 | OR ---
[facility] [address] [place], [place] [address] Signed DATE OF OPERATION: 04/18/2018 SURGEON: Rudy Rice MD PREOPERATIVE DIAGNOSIS: Right trigger thumb. POSTOPERATIVE DIAGNOSIS: Right trigger thumb. PROCEDURE PERFORMED: Right trigger thumb release. ANESTHESIA: General. TOURNIQUET TIME: 12 minutes. DOUGH RAISER: None. BRIEF HISTORY: Romelia is a 47-year-old female with pain and locking in her thumb. She has been wearing a splint for quite a while. Risks and benefits of operative release were discussed with her and she elected to proceed. DESCRIPTION OF PROCEDURE: Once consent was obtained, she was taken to operating room. After adequate anesthesia, the arm was prepped and draped in a standard sterile fashion. A 1 cm incision was made in the proximal flexion crease of the thumb, carried through skin and subcutaneous tissue. Careful dissection was taken through the soft tissue to avoid the nerve. The A1 radha was then identified under loupe magnification and was released using tenotomy scissors. The thumb was then fully flexed and fully extended. There was good excursion of the tendon with no triggering or locking. Once this was completed, the wound was copiously irrigated with antibiotic solution, closed with 3-0 nylon and dressed with bacitracin, Adaptic, 4 x 8 gauze. We did infiltrate 2 mL of 0.25% plain Marcaine at the end of the procedure. All sponge, needle, and instrument counts were correct. Electronically Signed By: RUDY RICE MD 04/20/18 1039 PATIENT NAME: ROMELIA LAI OPERATIVE REPORT DATE OF : 66 REPORT #: [id number] PHYSICIAN: RUDY RICE MD PCP: SIA ACEVEDO DO REPORT IS CONFIDENTIAL AND NOT TO BE RELEASED WITHOUT AUTHORIZATION [address] [address] Signed Rudy Rice MD BA/GIBSONL /[id number] Copies: ~ Electronically Signed By: RUDY RICE MD 04/20/18 1039 PATIENT NAME: ROMELIA LAI OPERATIVE REPORT DATE OF : 66 REPORT #: [id number] PHYSICIAN: RUDY RICE MD PCP: SIA ACEVEDO DO REPORT IS CONFIDENTIAL AND NOT TO BE RELEASED WITHOUT AUTHORIZATION
== END 2018-04-18 16:35 | disposition home or self-care (01) ==
LOC: DS 11:25 → OPS 11:25 → DS 14:30 → OPS 16:35
PROVIDERS: Specialist
PROC: 0LN70ZZ Release Right Hand Tendon, Open Approach (ICD-10-PCS; principal; 2018-04-18 14:30)
DX: M65.311 Trigger thumb, right thumb (principal); J45.909 Unspecified asthma, uncomplicated; F32.9 Major depressive disorder, single episode, unspecified; G40.909 Epilepsy, unspecified, not intractable, without status epilepticus; I10 Essential (primary) hypertension; M54.9 Dorsalgia, unspecified; G89.29 Other chronic pain; M19.90 Unspecified osteoarthritis, unspecified site; F12.90 Cannabis use, unspecified, uncomplicated; Z87.891 Personal history of nicotine dependence; Z88.0 Allergy status to penicillin; Z79.899 Other long term (current) drug therapy
CPT/HCPCS: 01810; J0690; J1100; J1885; J2250; J2405; J2704; J2765; J3010; J7120

== ENCOUNTER 2018-04-21 11:45 | Observation (INO) | payer OTHER ==
[~2018-04-21] VITALS: Ht 154.9 cm; Wt 72.8 kg
[~2018-04-21 11:45] MED LIST changes: +DICLOFENAC SODI75 MG PO; +HYDROCODON-ACE1 EA10 PO
--- OUTSIDE RECORDS SUMMARY | 2018-04-21 11:48 | XMS ---
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 Shari VISIT COUNT (12 MO.) 1 Kip Bill TOTAL 5 NOTE: Visits indicate total known visits. ED/UCC VISIT TRACKING (12 MO.) 04/21/2018 11:46 [facility] [place] TYPE: Emergency COMPLAINT: - VOMITING/VISION PROBLEM/SEIZURES 06/19/2017 02:27 [facility] [place] TYPE: Emergency COMPLAINT: - NEW ONSET SEIZURES 05/18/2017 12:09 Kip JIMENEZ OR TYPE: Emergency DIAGNOSES: - Secondary polycythemia - Abdominal pain - Tachycardia, unspecified - Acute ischemic heart disease, unspecified 05/15/2017 06:52 [facility] [place] TYPE: Emergency COMPLAINT: - ABD/BACK PAIN/NO INJURY DIAGNOSES: - Nicotine dependence, unspecified, uncomplicated - Other fci (current) drug therapy - Unspecified asthma, uncomplicated - Pain in thoracic spine - Allergy status to penicillin 05/09/2017 07:47 [facility] [place] TYPE: Emergency COMPLAINT: - DIFFICULTY BREATHING INPATIENT VISIT TRACKING (12 MO.) 06/19/2017 16:41 [facility] [place] TYPE: Medical Surgical COMPLAINT: - NEW ONSET SEIZURES DIAGNOSES: - Epilepsy, unspecified, not intractable, without status epilepticus - Allergy status to penicillin - Gastro-esophageal reflux disease without esophagitis - Bipolar disorder, unspecified - Essential (primary) hypertension - Personal history of nicotine dependence - Personal history of other diseases of the nervous system and sense organs - Other fci (current) drug therapy - Unspecified convulsions - Elevated white blood cell count, unspecified [facility] DIAGNOSES: - Acute ischemic heart disease, unspecified - Non-ST elevation (NSTEMI) myocardial infarction - Mild intermittent asthma, uncomplicated - Bipolar disorder, unspecified - Nicotine dependence, unspecified, uncomplicated 05/09/2017 15:48 MARYLOU [place] TYPE: Medical Surgical COMPLAINT: - ABDOMINAL PAIN DIAGNOSES: - Syncope and collapse - Diverticulosis of large intestine without perforation or abscess without bleeding - Cannabis use, unspecified, uncomplicated - Chest pain, unspecified - Unspecified asthma, uncomplicated - Other disorders of phosphorus metabolism - Acute gastritis without bleeding - Bradycardia, unspecified - Nicotine dependence, unspecified, uncomplicated - Hypokalemia - Unspecified abdominal pain - Bipolar disorder, unspecified - Dyskinesia of esophagus [email or web address]
[2018-04-22] MEDS ORDERED: KEPPRA500 MG PO (10:53)
[2018-04-23] MEDS ORDERED: REGLAN10 MG PO (10:56)
== END 2018-04-23 13:24 | disposition home or self-care (01) ==
LOC: ED 11:45 → CCU 11:47 → MS 04-22 14:50
PROVIDERS: ADMIT Internal Medicine
DX: G40.409 Other generalized epilepsy and epileptic syndromes, not intractable, without status epilepticus (principal); S43.004A Unspecified dislocation of right shoulder joint, initial encounter; F32.9 Major depressive disorder, single episode, unspecified; I10 Essential (primary) hypertension; G89.29 Other chronic pain; R10.9 Unspecified abdominal pain; R11.2 Nausea with vomiting, unspecified; Y92.238 Other place in hospital as the place of occurrence of the external cause; X50.0XXA Overexertion from strenuous movement or load, initial encounter; Z98.890 Other specified postprocedural states; Z88.0 Allergy status to penicillin; Z79.1 Long term (current) use of non-steroidal anti-inflammatories (NSAID); Z79.899 Other long term (current) drug therapy
CPT/HCPCS: 23650; 36415; 70450; 73030; 74177; 80048; 80053; 81001; 83690; 83735; 84100; 85025; 96361; 96365; 96375; 96376; 99152; 99285-25; C9113; G0378; J1170; J1953; J2060; J2405; J2550; J2765; J7030; J7060; Q9967

== ENCOUNTER 2018-07-14 18:39 | Emergency (ER) | payer OTHER ==
[~2018-07-14] VITALS: Ht 154.9 cm; Wt 68.0 kg
[~2018-07-14 18:39] MED LIST changes: +KEPPRA500 MG PO; +REGLAN10 MG PO
--- OUTSIDE RECORDS SUMMARY | 2018-07-14 18:42 | XMS ---
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 Care History Medical/Surgical 04/22/2018 [facility] - Patient is currently established with [facility]. If patient is seen in the ED during business hours. Please contact CHWs at [facility]. Care Recommendation: This patient has had 5 or more Emergency Department visits in the last 12 months.\T\nbsp; Patient requires education on the scope and purpose of the ED as an acute care provider not a Primary Care Provider and should not be utilized for chronic conditions.\T\nbsp; These are guidelines and the provider should exercise clinical judgment when providing care. E.D. VISIT COUNT (12 MO.) 2 MARYLOU Bill TOTAL 2 NOTE: Visits indicate total known visits. ED/UCC VISIT TRACKING (12 MO.) 07/14/2018 18:39 [facility] TYPE: Emergency COMPLAINT: - VOMITING 04/21/2018 11:46 [facility] [place] TYPE: Emergency COMPLAINT: - VOMITING/VISION PROBLEM/SEIZURES INPATIENT VISIT TRACKING (12 MO.) 04/21/2018 11:47 [facility] TYPE: Observation COMPLAINT: - SEIZURES DIAGNOSES: - Other terminal clerk (current) drug therapy - Unspecified abdominal pain - Allergy status to penicillin - snf (current) use of non-steroidal anti-inflammatories (NSAID) - Overexertion from strenuous movement or load, initial encounter - Nausea with vomiting, unspecified - Other specified postprocedural states - Other place in hospital as the place of occurrence of the external cause - Major depressive disorder, single episode, unspecified - Unspecified dislocation of right shoulder joint, initial encounter - Essential (primary) hypertension - Other chronic pain - Other generalized epilepsy and epileptic syndromes, not intractable, without status epilepticus [email or web address]
[2018-07-14] MEDS ORDERED: PHENERGAN50 MG PR (21:19)
[2018-07-14] MEDS ORDERED: PROMETHAZINE HC25 M1 PR (21:19)
[2018-07-14] MEDS ORDERED: ONDANSETRON ODT4 MG PO (21:19)
[2018-07-14] MEDS ORDERED: REGLAN10 MG PO (21:19)
== END 2018-07-14 21:33 | disposition home or self-care (01) ==
LOC: ED 18:39
DX: K29.50 Unspecified chronic gastritis without bleeding (principal); G40.909 Epilepsy, unspecified, not intractable, without status epilepticus; F32.9 Major depressive disorder, single episode, unspecified; I10 Essential (primary) hypertension; Z88.0 Allergy status to penicillin; Z79.899 Other long term (current) drug therapy
CPT/HCPCS: 80053; 81001; 83690; 85025; 96361; 96374; 96375; 99284-25; J2405; J2550; J2765; J7030

== ENCOUNTER 2018-11-10 11:57 | Emergency (ER) | payer OTHER ==
[~2018-11-10] VITALS: Ht 154.9 cm; Wt 68.5 kg
[~2018-11-10 11:57] MED LIST changes: +ONDANSETRON ODT4 MG PO; +PHENERGAN50 MG PR; +PROMETHAZINE HC25 M1 PR
--- OUTSIDE RECORDS SUMMARY | 2018-11-10 12:00 | XMS ---
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 Care History Medical/Surgical 04/22/2018 [facility] - Patient is currently established with [facility]. If patient is seen in the ED during business hours. Please contact CHWs at [facility]. Care Recommendation: This patient has had 5 [...] providing care. E.D. VISIT COUNT (12 MO.) 3 MARYLOU Bill TOTAL 3 NOTE: Visits indicate total known visits. ED/UCC VISIT TRACKING (12 MO.) 11/10/2018 11:58 MARYLOU eLa OR TYPE: Emergency COMPLAINT: - ABD PAIN,CHEST DISCOMFORT 07/14/2018 18:39 [facility] TYPE: Emergency COMPLAINT: - VOMITING DIAGNOSES: - Major depressive disorder, single episode, unspecified - Allergy status to penicillin - Epilepsy, unspecified, not intractable, without status epilepticus - Other fpc (current) drug therapy - Unspecified chronic gastritis without bleeding - Unspecified abdominal pain - Essential (primary) hypertension 04/21/2018 11:46 [facility] TYPE: Emergency COMPLAINT: - VOMITING/VISION PROBLEM/SEIZURES INPATIENT VISIT TRACKING (12 MO.) 04/21/2018 11:47 [facility] TYPE: Observation COMPLAINT: - SEIZURES DIAGNOSES: - Other fpc (current) drug therapy - Unspecified abdominal pain - Allergy status to penicillin - long term (current) use of non-steroidal anti-inflammatories (NSAID) - [...] epileptic syndromes, not intractable, without status epilepticus [email or web address]
[2018-11-10] MEDS ORDERED: LAMICTAL ODT50 MG PO (12:32)
--- NOTE | 2018-11-10 12:44 | EKG ---
[facility] [address] [place] [address] Signed Sinus tachycardia Otherwise normal ECG When compared with ECG of 10-APR-2018 16:24, Vent. rate has increased BY 48 BPM QT has lengthened Confirmed by RUSSEL ARIZMENDI MD ([id number]) on 11/10/2018 12:44:14 PM Electronically Signed By: RUSSEL ARIZMENDI MD 11/10/18 1244 PATIENT NAME: WARREN LAI Electrocardiogram DATE OF : 66 PHYSICIAN: RUSSEL ARIZMENDI MD REPORT #: [id number] REPORT IS CONFIDENTIAL AND NOT TO BE RELEASED WITHOUT AUTHORIZATION
[2018-11-10] MEDS ORDERED: ZOFRAN4 MG PO (14:49)
[2018-11-10] MEDS ORDERED: LIDOCAINE HCL100 ML MT (14:51)
[2018-11-10] MEDS ORDERED: MAALOX ADVANCE355 ML PO (14:51)
== END 2018-11-10 15:20 | disposition home or self-care (01) ==
LOC: ED 11:57
DX: R10.13 Epigastric pain (principal); I10 Essential (primary) hypertension; Z88.0 Allergy status to penicillin
CPT/HCPCS: 80053; 81001; 83690; 85025; 93005; 93010; 96361; 96374; 96375; 99284-25; C9113; J2405; J2550; J7030

== ENCOUNTER 2020-01-09 06:59 | Emergency (ER) | payer OTHER ==
[~2020-01-09] VITALS: Ht 152.4 cm; Wt 77.1 kg
[~2020-01-09 06:59] MED LIST changes: +CELEBREX200 MG PO; +HYDROCODON-ACE1 EA11 PO; +LAMICTAL ODT50 MG PO; +LIDOCAINE HCL100 ML MT; +MAALOX ADVANCE355 ML PO; +MOBIC15 MG PO
--- OUTSIDE RECORDS SUMMARY | 2020-01-09 07:02 | XMS ---
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 Care History Medical/Surgical 04/22/2018 [facility] - Patient is currently established with [facility]. If patient is seen in the ED during business hours. Please contact CHWs at [facility]. Care Recommendation: This patient has had 5 [...] providing care. E.D. VISIT COUNT (12 MO.) 1 MAYRLOU Bill TOTAL 1 NOTE: Visits indicate total known visits. ED/UCC VISIT TRACKING (12 MO.) 01/09/2020 07:00 [facility] TYPE: Emergency COMPLAINT: - RIGHT SIDE BACK PAIN INPATIENT VISIT TRACKING (12 MO.) No inpatient visits to display in this time frame [email or web address]
[2020-01-09] MEDS ORDERED: NORCO 5-325 TA1 EACH PO (09:30)
== END 2020-01-09 09:50 | disposition home or self-care (01) ==
LOC: ED 06:59
DX: S29.011A Strain of muscle and tendon of front wall of thorax, initial encounter (principal); X58.XXXA Exposure to other specified factors, initial encounter; F32.9 Major depressive disorder, single episode, unspecified; I10 Essential (primary) hypertension; J45.909 Unspecified asthma, uncomplicated; Z88.0 Allergy status to penicillin; Z79.899 Other long term (current) drug therapy
CPT/HCPCS: 71101; 81001; 84703; 99285-25

== ENCOUNTER 2022-04-06 05:40 | Day surgery (SDC) | payer OTHER ==
[~2022-04-06] VITALS: Ht 152.4 cm; Wt 81.8 kg
[~2022-04-06 05:40] MED LIST changes: +ADVAIR HFA 115-12 GM INH; +AMLODIPINE BESYL5 MG PO; +BENICAR20 MG PO; +GABAPENTIN300 MG PO; +LAMICTAL100 MG PO; +NORCO 5-325 TA1 EACH PO
--- NOTE | 2022-04-06 05:59 | NUR ---
L SHOULDER ROTATOR CUFF TEAR. 5/10 PAIN.
--- NOTE | 2022-04-06 08:04 | NUR ---
04/06/22 0804 Tila Merritt 0757 PATIENT ARRIVES TO PACU RESTING WITH EYES CLOSED. AWAKENS WITH VERBAL STIMULI, AND THEN STAYS AWAKE. DENIES PAIN OR NAUSEA. RESP EVEN AND UNLABORED, NC AT 4 LITERS, TURNED OFF.
--- NOTE | 2022-04-06 08:28 | NUR ---
PT IS ALERT, ORIENTED AND HERE FOR HER FIRST SCOPE. PT SHARED THAT SHE IS HERE DUE TO FAMILY HISTORY OF COLO-RECTAL CANCER THAT JUST CLAIMED THE LIFE OF HER SISTER. GAVE COMFORT, ENCOURAGEMENT, PT REQUESTED PRAYER GUCCI BELL WAITING FOR PT. WILL FOLLOW NEEDED
--- NOTE | 2022-04-09 14:53 | OR ---
[facility] [address] [place], [place] [address] Signed DATE OF OPERATION: 04/06/2022 SURGEON: Jeffrey Bah MD PREOPERATIVE DIAGNOSES: 1. Sister diagnosed with rectal cancer age 57 and of rectal cancer age 59. 2. Intermittent alternating constipation and diarrhea. 3. Question of Crohn's disease. 4. Question of pancreatitis. 5. Hemorrhoids with intermittent rectal bleeding. 6. External anal skin tag. 7. Negative colonoscopy in [address] Coleman. POSTOPERATIVE DIAGNOSIS: Minimal to moderate sigmoid diverticulosis. PROCEDURE: Colonoscopy with random cold biopsies of the terminal ileum, colon and rectum. ESTIMATED BLOOD LOSS: None. INDICATIONS: Romelia is a 51-year-old female asked to see me for a screening colonoscopy. Her sister had been diagnosed with rectal cancer at age 57. She just a few weeks ago at the age of 59 from the rectal cancer. Romelia had noticed some bulging of her right eye. 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 There was some concern about possible Crohn's disease at that time. Her stool calprotectin level was negative in 2020. She has had lifelong intermittent abdominal pain and alternating constipation and diarrhea. There was some entertainment of possible pancreatitis in the past. There is some concern she has irritable bowel syndrome. She is concerned she has hemorrhoids in the past and that she has intermittent rectal bleeding. Apparently, she was treated for C difficile colitis [place] [address] Rodriguez had helped her with her gallbladder surgery as well. In 2017, she underwent upper endoscopy with Dr. Rodriguez at the age of 46. She had mild gastritis. She later went up to see Dr. Coleman in 2008 at the age of 37. That colonoscopy was unremarkable. There were concerns for abdominal pain and irritable bowel syndrome. I helped her in my office in 2012 at age of 41 for the rectal bleeding. Anoscopy had revealed just an external anal skin tag. She never scheduled her colonoscopy at that time. She told me she had injured her left shoulder recently and we were very careful with that today with extra pillows and so forth. She mainly comes on Electronically Signed By: JEFFREY BAH MD 04/06/22 0927 Electronically Signed By: JEFFREY BAH MD 04/10/22 0623 PATIENT NAME: ROMELIA LAI OPERATIVE REPORT DATE OF : 66 REPORT #: [id number] PHYSICIAN: JEFFREY BAH MD PCP: NAYAN ACEVEDO DO REPORT IS CONFIDENTIAL AND NOT TO BE RELEASED WITHOUT AUTHORIZATION [facility] [address] [place], [place] [address] Signed this occasion because of her sister's history of rectal cancer. In the office, I gave her a pamphlet on colonoscopy. We reviewed the nature of the test. There is risk including, but not limited to gas bloating, crampy abdominal pain, bleeding, perforation requiring surgery, and missed diagnosis. We also reviewed the need for monitored anesthesia care with propofol given her body habitus and complex past medical history. She had expressed understanding and wished to proceed. PROCEDURE NOTE: Romelia was taken into our endoscopy suite and placed in the left lateral decubitus position. She was given monitored anesthesia care with propofol per our nurse railroad police officer. A digital rectal exam was performed and this was unremarkable. There were no external hemorrhoids or skin tags on this occasion. She had good sphincter tone. There were no masses. The adult colonoscope was introduced and advanced all the way around into the cecum under direct visualization of the camera. It took just a few extra minutes to get through the angulated sigmoid colon. After that, the camera passed quite nicely. Her prep was quite good. We turned the scope and went up into the terminal ilium about 12 cm. It was quite healthy. Because of the remote possibility of Crohn's disease, we went ahead and took random cold biopsies in the terminal ileum as well as throughout the colon and rectum. However, we saw no inflammatory changes throughout the colon or rectum nor the terminal ileum. We could easily see her appendiceal orifice and of course the ileocecal valve. The scope was then slowly withdrawn. We took pictures throughout for photodocumentation. There were no polyps. She does have diverticula in her sigmoid colon. They were moderate in size, moderate in number, and scattered about. The rectum was unremarkable. Upon retroflexion of the scope, really not much in the way of any internal hemorrhoids. After this, the gas was suctioned out and the colonoscope removed. Romelia tolerated the procedure quite well. RECOMMENDATIONS: I will see Romelia back in my office in 7 to 14 days to review her random biopsies. She will be on the five year plan because of her family history of rectal cancer in her sister. Jeffrey Bah MD ALB/MODL /[id number] Electronically Signed By: JEFFREY BAH MD 04/06/22 0927 Electronically Signed By: JEFFREY BAH MD 04/10/22 0623 PATIENT NAME: ROMELIA LAI OPERATIVE REPORT DATE OF : 66 REPORT #: [id number] PHYSICIAN: JEFFREY BAH MD PCP: NAYAN ACEVEDO DO REPORT IS CONFIDENTIAL AND NOT TO BE RELEASED WITHOUT AUTHORIZATION [address] [facility] [place], [place] [address] Signed cc: MD Nayan Frederick DO Copies: JEFFREY BAH MD, ARIAN DO ~ Electronically Signed By: JEFFREY BAH MD 04/06/22 0927 Electronically Signed By: JEFFREY BAH MD 04/10/22 0623 PATIENT NAME: ROMELIA LAI OPERATIVE REPORT DATE OF : 66 REPORT #: [id number] PHYSICIAN: JEFFREY BAH MD PCP: NAYAN ACEVEDO DO REPORT IS CONFIDENTIAL AND NOT TO BE RELEASED WITHOUT AUTHORIZATION
--- NOTE | 2022-04-10 14:13 | PATH ---
[facility] [address] [facility] [place], [place] [address] Signed SPECIMEN(S): A TERMINAL ILEUM BIOPSY SPECIMEN(S): B ASCENDING/RIGHT COLON BIOPSY SPECIMEN(S): C TRANSVERSE COLON BIOPSY SPECIMEN(S): D DESCENDING/LEFT COLON BIOPSY SPECIMEN(S): E SIGMOID COLON BIOPSY SPECIMEN(S): F RECTUM SPECIMEN SOURCE: A. TERMINAL ILEUM BIOPSY B. ASCENDING/RIGHT COLON BIOPSY C. TRANSVERSE COLON BIOPSY D. DESCENDING/LEFT COLON BIOPSY E. SIGMOID COLON BIOPSY F. RECTUM [id number] A CLINICAL HISTORY: Colonoscopy. Preop: Family history of colon CA. Postop: Diverticulosis. FINAL PATHOLOGIC DIAGNOSIS: A. Terminal ileum biopsy: - Benign small bowel-type mucosa, negative for specific diagnostic abnormality. B. Ascending / right colon biopsy: - Benign colonic mucosa, negative for pathologic inflammation. C. Transverse colon biopsy: - Benign colonic mucosa, negative for pathologic inflammation. D. Descending / left colon biopsy: - Benign colonic mucosa, negative for pathologic inflammation. E. Sigmoid colon biopsy: - Benign colonic mucosa, negative for pathologic inflammation. F. Rectum: - Benign colonic mucosa, negative for pathologic inflammation. JVR:[facility]:C2NR MICROSCOPIC EXAMINATION: Histologic sections of all submitted blocks are examined by light microscopy. These findings, together with the gross examination, support the pathologic diagnosis. GROSS DESCRIPTION: PATIENT NAME: ROMELIA CAT PATHOLOGY DATE OF : 66 REPORT #: [id number] PHYSICIAN: ARABELLA REN PCP: SIA ACEVEDO DO REPORT IS CONFIDENTIAL AND NOT TO BE RELEASED WITHOUT AUTHORIZATION [facility] [address] [place], [place] [address] Signed A. The specimen, labeled and designated "Romelia Cat, #1," and designated on the requisition as "terminal ileum colon biopsy"," is received in formalin and consists of one elongated, ragged, whitten, soft tissue fragment, 0.6 cm. Entirely submitted in (A1). B. The specimen, labeled and designated "Romelia Cat, #2," and designated on the requisition as "colon ascending/right biopsy"," is received in formalin and consists of 1 whitten, 0.4 cm in greatest dimension soft tissue fragment. The specimen is submitted in toto in one cassette (B1). C. The specimen, labeled and designated "Romelia Cat, #3," and designated on the requisition as "colon transverse biopsy"," is received in formalin and consists of one whitten soft tissue fragment, 0.4 cm. Entirely submitted in (C1). D. The specimen, labeled and designated "Romelia Cat, #4," and designated on the requisition as "colon descending/left biopsy"," is received in formalin and consists of one whitten soft tissue fragment, 0.5 cm. Entirely submitted in (D1). E. The specimen, labeled and designated "Romelia Cat, #5," and designated on the requisition as "colon sigmoid biopsy"," is received in formalin and consists of one whitten soft tissue fragment, 0.5 cm. Entirely submitted in (E1). F. The specimen, labeled and designated "Romelia Cat, #6," and designated on the requisition as "rectum biopsy"," is received in formalin and consists of one whitten soft tissue fragment, 0.4 cm. Entirely submitted in (F1). AI (under the direct supervision of a pathologist) The Gross Description was prepared using a voice recognition system. The report was reviewed for accuracy; however, sound-alike word errors, addition and/or deletions may occur. If there is any question about this report, please contact Client Services. PERFORMING LABORATORY: The technical component was performed by [facility], [address] [place] [id number] (CLIA# [id number]). Professional interpretation was performed by [facility], [address] [place] [id number] (CLIA#: [id number]). Diagnostician: Ramana Stone MD Pathologist Electronically Signed 04/10/2022 PATIENT NAME: ROMELIA CAT PATHOLOGY DATE OF : 66 REPORT #: [id number] PHYSICIAN: ARABELLA REN PCP: SIA ACEVEDO DO REPORT IS CONFIDENTIAL AND NOT TO BE RELEASED WITHOUT AUTHORIZATION [address] [place] [address] Signed Copies: ~ PATIENT NAME: ROMELIA CAT PATHOLOGY DATE OF : 66 REPORT #: [id number] PHYSICIAN: ARABELLA PATHOLOGY PCP: SIA ACEVEDO DO REPORT IS CONFIDENTIAL AND NOT TO BE RELEASED WITHOUT AUTHORIZATION
== END 2022-04-06 08:30 | disposition home or self-care (01) ==
LOC: DS 05:40
PROVIDERS: ATTEND Colon & Rectal Surgery
PROC: 0DDE8ZX Extraction of Large Intestine, Via Natural or Artificial Opening Endoscopic, Diagnostic (ICD-10-PCS; 2022-04-06)
PROC: 0DDP8ZX Extraction of Rectum, Via Natural or Artificial Opening Endoscopic, Diagnostic (ICD-10-PCS; 2022-04-06)
PROC: 0DDB8ZX Extraction of Ileum, Via Natural or Artificial Opening Endoscopic, Diagnostic (ICD-10-PCS; principal; 2022-04-06 07:30)
DX: Z12.11 Encounter for screening for malignant neoplasm of colon (principal); K57.30 Diverticulosis of large intestine without perforation or abscess without bleeding; K58.2 Mixed irritable bowel syndrome; I10 Essential (primary) hypertension; E66.9 Obesity, unspecified; G40.909 Epilepsy, unspecified, not intractable, without status epilepticus; F31.9 Bipolar disorder, unspecified; Z80.0 Family history of malignant neoplasm of digestive organs; Z79.899 Other long term (current) drug therapy
CPT/HCPCS: J2250; J2704; J3010; J7121

== ENCOUNTER 2024-01-21 07:53 | Emergency (ER) | payer OTHER ==
[~2024-01-21] VITALS: Ht 152.4 cm; Wt 75.9 kg
[2024-01-21 08:28] LABS: BASOPHILS 0.8 % (0-2); EOSINOPHILS 2.1 % (0-6); HEMATOCRIT 49.5 % (35.0-50.0); HEMOGLOBIN 17.1 g/dL (12.0-18.0); LYMPHOCYTES 21.4 % (24-44); MCHC 34.5 g/dl (30-36); MCV 95.6 fl (81-99); MONOCYTES 6.6 % (0-12); NEUTROPHILS 69.1 % (39-80); PLATELET COUNT 341 K/uL (140-440); RBC 5.18 M/ul (4.3-5.7); RDW 12.2 (10.5-15.0)
[2024-01-21] MEDS ORDERED: ALBUTEROL/IPRATROPIUM 3 ML NEB INH ONE (08:30)
[2024-01-21] MEDS ORDERED: SODIUM CHLORIDE 0.9% 1,000 ML IV PRN ×2 (08:30→10:00)
[2024-01-21 08:36] LABS: ALBUMIN 4.6 g/dL (3.4-5.0); ALBUMIN/GLOBULIN RATIO 1.05 (1.1-2.4); ANION GAP 19.9 (7-21); BUN/CREATININE RATIO 14.1 (6.0-28.6); CALCIUM 10.3 mg/dL (8.5-10.1); CREATININE, SERUM 0.78 mg/dL (0.55-1.02); MAGNESIUM 1.9 mg/dL (1.8-2.4); PHOSPHORUS, INORGANIC 2.9 mg/dL (2.5-4.9); POTASSIUM 3.9 mmol/L (3.5-5.1)
[2024-01-21] MEDS ORDERED: LORazepam 2 MG/ML VIAL IV ONE (09:00)
[2024-01-21 09:38] LABS: BILIRUBIN, URINE NEGATIVE (negative); BLOOD/HGB, URINE NEGATIVE (Negative); KETONE, URINE >=80 (Negative); LEUK ESTERASE, URINE NEGATIVE (negative); NITRITE, URINE NEGATIVE (negative); PH, URINE 5.5 (5-7)
[2024-01-21 09:42] LABS: CRYSTALS, URINE NONE SEEN (0-1+); EPITHELIAL CELLS, URINE SQUAMOUS 2+ /lpf (0-1+); RED BLOOD CELLS, URINE 0-1 /hpf (0-5)
[2024-01-21 09:43] LABS: BACTERIA, URINE RARE /hpf (negative); CASTS, URINE NONE SEEN \\lpf; COLLECTION TYPE, URINE CLEAN CATCH; REFLEX CULTURE, URINE No (No)
[2024-01-21] MEDS ORDERED: ONDANSETRON ODT4 MG PO (11:19)
[2024-01-21 11:24] VITALS: BP 167/111
== END 2024-01-21 11:28 | disposition home or self-care (01) ==
LOC: ED 07:53
PROVIDERS: Emergency Medicine
DX: R19.7 Diarrhea, unspecified (principal); J45.909 Unspecified asthma, uncomplicated; G40.909 Epilepsy, unspecified, not intractable, without status epilepticus; I10 Essential (primary) hypertension; Z88.0 Allergy status to penicillin; Z88.8 Allergy status to other drugs, medicaments and biological substances; Z79.899 Other long term (current) drug therapy
CPT/HCPCS: 36415; 80053; 81001; 83735; 84100; 85025; 94640; 96361; 96374; 99284-25; J2060; J7030